=== PATIENT | male | born 1945 | race Caucasian/White ===

== ENCOUNTER 2017-11-15 12:15 | Emergency (ER) | payer MEDICARE, OTHER ==
[~2017-11-15] VITALS: Ht 172.7 cm; Wt 61.2 kg
[2017-11-15] MEDS ORDERED: CEPH500 PO (13:03)
== END 2017-11-15 14:15 | disposition home or self-care (01) ==
LOC: ER 12:15
DX: S01.511A Laceration without foreign body of lip, initial encounter (principal); G89.4 Chronic pain syndrome; W01.198A Fall on same level from slipping, tripping and stumbling with subsequent striking against other object, initial encounter
CPT/HCPCS: 90471; 90714; 99283

== ENCOUNTER 2018-03-08 16:55 | Emergency (ER) | payer MEDICARE, OTHER ==
[~2018-03-08] VITALS: Ht 170.2 cm; Wt 56.7 kg
[~2018-03-08 16:55] MED LIST: ALLO100 PO; AMLO5 PO; ASPI325 PO; B-12500 MCG PO; BACL10 PO; CEPH500 PO; DICL25ER PO; DONE5 PO; EPIPEN 2-P0.3 MG/0.3 IM; Keppra750 MG PO; LEVSOD125 PO; Liquitears15 ML UD; MAGOXI400 PO; MIRT15 PO; NYSTATIN1 EAC1 TOP; Oxycodone HCl20 M1 PO; SERT100 PO; TIZANIDINE HCL4 MG PO; VITAMIN D35000 UNI1 PO
[2018-03-08 17:55] LABS: BASOPHILS ABSOLUTE AUTO 0.04 K/mm3 (0.00-0.23); BASOPHILS PERCENT AUTO 1 % (0-2); EOSINOPHILS PERCENT AUTO 3 % (0-6); Hematocrit 32.3 % (37.0-53.0); Hemoglobin 10.2 g/dL (13.5-17.5); IMMATURE GRAN ABSOLUTE AUTO 0.02 K/mm3 (0.00-0.10); IMMATURE GRAN PERCENT AUTO 1 % (0-1); LYMPHOCYTES PERCENT AUTO 20 % (21-46); MONOCYTES ABSOLUTE AUTO 0.54 K/mm3 (0.16-1.47); MONOCYTES PERCENT AUTO 15 % (4-13); Mean Corpuscular HGB 31.9 pg (26.0-34.0); Mean Corpuscular HGB Conc 31.6 g/dL (31.5-36.5); Mean Corpuscular Volume 101 fL (80-100); Mean Platelet Volume 11.1 fL (9.1-12.4); NEUTROPHILS ABSOLUTE AUTO 2.11 K/mm3 (1.96-9.15); NEUTROPHILS PERCENT AUTO 60 % (41-73); Platelet Count 134 K/mm3 (150-400); RDW Coefficient Variation 13.3 % (11.7-14.2); RDW Standard Deviation 50.1 fL (35.1-46.3); White Blood Cell Count 3.51 K/mm3 (4.00-11.30)
[2018-03-08 18:34] LABS: Alanine Aminotransfer (ALT/SGP 13 U/L (12-78); Albumin, Blood 3.5 g/dL (3.4-5.0); Albumin/Globulin Ratio 1.3 (0.8-1.8); Alk Phos 57 U/L (50-136); Anion Gap 8 mmol/L (6-16); Aspartate Aminotrans (AST/SGOT 17 U/L (12-37); Bilirubin, Total 0.5 mg/dL (0.1-1.0); Blood Urea Nitrogen 21 mg/dL (8-24); Bun/Creatinine Ratio 14.1 (12.0-20.0); CO2, Blood 27 mmol/L (21-32); Calcium, Blood 8.6 mg/dL (8.5-10.1); Chloride, Blood 106 mmol/L (98-108); Creatinine, Blood 1.49 mg/dL (0.60-1.20); Globulin, Blood 2.7 g/dL (2.2-4.0); Glomerular Filtration Rate 49 (60-); Glucose, Blood 93 mg/dL (70-99); Potassium, Blood 4.6 mmol/L (3.5-5.5); Sodium, Blood 141 mmol/L (136-145); Total Protein, Blood 6.2 g/dL (6.4-8.2)
[2018-03-08 19:35] LABS: Troponin I <0.015 ng/mL (0.000-0.040)
[2018-03-08] MEDS ORDERED: Lomotil Tablet1 EACH PO (19:47)
== END 2018-03-08 22:45 | disposition home or self-care (01) ==
LOC: ER 16:55
PROVIDERS: Emergency Medicine
DX: R55 Syncope and collapse (principal); R19.7 Diarrhea, unspecified; Z79.899 Other long term (current) drug therapy
CPT/HCPCS: 36415; 71045; 80053; 81000; 84484; 85025; 93005; 93010; 96360; 96361; 99285-25; J7030

== ENCOUNTER 2018-04-21 16:11 | Emergency (ER) | payer MEDICARE, OTHER ==
[~2018-04-21] VITALS: Ht 167.6 cm; Wt 54.4 kg
[~2018-04-21 16:11] MED LIST changes: +Lomotil Tablet1 EACH PO
[2018-04-21 17:37] LABS: BASOPHILS ABSOLUTE AUTO 0.03 K/mm3 (0.00-0.23); BASOPHILS PERCENT AUTO 0 % (0-2); EOSINOPHILS ABSOLUTE AUTO 0.01 K/mm3 (0.00-0.68); EOSINOPHILS PERCENT AUTO 0 % (0-6); IMMATURE GRAN ABSOLUTE AUTO 0.05 K/mm3 (0.00-0.10); IMMATURE GRAN PERCENT AUTO 1 % (0-1); LYMPHOCYTES ABSOLUTE AUTO 0.94 K/mm3 (0.84-5.20); LYMPHOCYTES PERCENT AUTO 13 % (21-46); MONOCYTES ABSOLUTE AUTO 0.68 K/mm3 (0.16-1.47); MONOCYTES PERCENT AUTO 9 % (4-13); Mean Corpuscular HGB 31.2 pg (26.0-34.0); Mean Corpuscular HGB Conc 34.3 g/dL (31.5-36.5); Mean Corpuscular Volume 91 fL (80-100); Mean Platelet Volume 10.1 fL (9.1-12.4); NEUTROPHILS ABSOLUTE AUTO 5.73 K/mm3 (1.96-9.15); NEUTROPHILS PERCENT AUTO 77 % (41-73); Platelet Count 254 K/mm3 (150-400); RDW Coefficient Variation 13.4 % (11.7-14.2); RDW Standard Deviation 44.7 fL (35.1-46.3); Red Blood Cell Count 3.85 M/mm3 (4.30-5.90); White Blood Cell Count 7.44 K/mm3 (4.00-11.30)
[2018-04-21 17:44] LABS: Alanine Aminotransfer (ALT/SGP 232 U/L (12-78); Albumin, Blood 3.9 g/dL (3.4-5.0); Albumin/Globulin Ratio 1.2 (0.8-1.8); Alk Phos 200 U/L (50-136); Anion Gap 17 mmol/L (6-16); Aspartate Aminotrans (AST/SGOT 136 U/L (12-37); Bilirubin, Total 0.7 mg/dL (0.1-1.0); Blood Urea Nitrogen 17 mg/dL (8-24); Bun/Creatinine Ratio 22.4 (12.0-20.0); CO2, Blood 18 mmol/L (21-32); Calcium, Blood 8.4 mg/dL (8.5-10.1); Chloride, Blood 108 mmol/L (98-108); Creatinine, Blood 0.76 mg/dL (0.60-1.20); Globulin, Blood 3.2 g/dL (2.2-4.0); Glomerular Filtration Rate >60 (60-); Glucose, Blood 102 mg/dL (70-99); Potassium, Blood 3.1 mmol/L (3.5-5.5); Sodium, Blood 143 mmol/L (136-145); Total Protein, Blood 7.1 g/dL (6.4-8.2)
[2018-04-21 17:45] LABS: Ethanol (Alcohol), Blood, Med 536 mg/dL
[2018-04-23 09:16] LABS: HBSAG SCREEN Negative (Negative); HEP A AB, IGM Negative (Negative); HEP B CORE AB, IGM Negative (Negative); HEP C VIRUS AB 0.2 (0.0-0.9)
== END 2018-04-21 21:02 | disposition home or self-care (01) ==
LOC: ER 16:11
PROVIDERS: Emergency Medicine
DX: F10.129 Alcohol abuse with intoxication, unspecified (principal); Z87.891 Personal history of nicotine dependence
CPT/HCPCS: 80053; 80074; 83735; 85025; 93005; 93010; 99284-25; G0480; J3411; J3475; J7042

== ENCOUNTER 2018-05-05 08:14 | Observation (INO) | payer MEDICARE, OTHER ==
[~2018-05-05] VITALS: Ht 167.6 cm; Wt 51.8 kg
[2018-05-05 09:22] LABS: Source, Urine Catheter
[2018-05-05 09:31] LABS: Appearance, Urine Clear (Clear); Bilirubin, Urine Neg (Neg); Blood, Urine 3+ (Neg); Color, Urine Yellow (P-Yellow); Glucose Qualitative, Urine Neg (Neg); Ketones, Urine 1+ (Neg); Leukocyte Esterase, Urine Neg (Neg); Nitrite, Urine Neg (Neg); Protein, Urine 1+ (Neg); Specific Gravity, Urine 1.015 (1.003-1.022); Urobilinogen, Urine NORM (Normal)
[2018-05-05 09:31] LABS: BASOPHILS ABSOLUTE AUTO 0.03 K/mm3 (0.00-0.23); BASOPHILS PERCENT AUTO 0 % (0-2); EOSINOPHILS ABSOLUTE AUTO 0.01 K/mm3 (0.00-0.68); EOSINOPHILS PERCENT AUTO 0 % (0-6); Hematocrit 34.6 % (37.0-53.0); Hemoglobin 11.5 g/dL (13.5-17.5); IMMATURE GRAN ABSOLUTE AUTO 0.12 K/mm3 (0.00-0.10); IMMATURE GRAN PERCENT AUTO 1 % (0-1); LYMPHOCYTES ABSOLUTE AUTO 0.73 K/mm3 (0.84-5.20); LYMPHOCYTES PERCENT AUTO 5 % (21-46); MONOCYTES ABSOLUTE AUTO 1.52 K/mm3 (0.16-1.47); MONOCYTES PERCENT AUTO 11 % (4-13); Mean Corpuscular HGB Conc 33.2 g/dL (31.5-36.5); Mean Corpuscular Volume 93 fL (80-100); Mean Platelet Volume 10.9 fL (9.1-12.4); NEUTROPHILS ABSOLUTE AUTO 11.34 K/mm3 (1.96-9.15); NEUTROPHILS PERCENT AUTO 82 % (41-73); Platelet Count 265 K/mm3 (150-400); RDW Coefficient Variation 13.9 % (11.7-14.2); Red Blood Cell Count 3.71 M/mm3 (4.30-5.90); White Blood Cell Count 13.75 K/mm3 (4.00-11.30)
[2018-05-05 09:52] LABS: Alanine Aminotransfer (ALT/SGP 29 U/L (12-78); Albumin, Blood 3.9 g/dL (3.4-5.0); Albumin/Globulin Ratio 1.1 (0.8-1.8); Alk Phos 107 U/L (50-136); Anion Gap 9 mmol/L (6-16); Aspartate Aminotrans (AST/SGOT 43 U/L (12-37); Bilirubin, Total 1.3 mg/dL (0.1-1.0); Blood Urea Nitrogen 14 mg/dL (8-24); Bun/Creatinine Ratio 14.1 (12.0-20.0); CO2, Blood 24 mmol/L (21-32); CPK Creatine Kinase 569 U/L (39-308); Calcium, Blood 8.8 mg/dL (8.5-10.1); Chloride, Blood 104 mmol/L (98-108); Creatinine, Blood 0.99 mg/dL (0.60-1.20); Globulin, Blood 3.4 g/dL (2.2-4.0); Glomerular Filtration Rate >60 (60-); Glucose, Blood 90 mg/dL (70-99); Potassium, Blood 3.3 mmol/L (3.5-5.5); Sodium, Blood 137 mmol/L (136-145); Total Protein, Blood 7.3 g/dL (6.4-8.2)
[2018-05-05 09:58] LABS: Red Blood Cells, Urine 0-2 /hpf (0-2); White Blood Cells, Urine 0-2 /hpf (0-5)
[2018-05-05 09:59] LABS: Bacteria Not Seen /hpf
[2018-05-05 10:12] LABS: Creatine Kinase MB 12.6 ng/mL (0.0-3.6); Creatine Kinase MB Index 2.2 (0.0-4.0)
[2018-05-05] MEDS ORDERED: NYSTATIN1 EAC1 TOP (16:11)
[2018-05-05] MEDS ORDERED: BACL10 PO (16:12)
[2018-05-05] MEDS ORDERED: DONE5 PO (16:13)
[2018-05-05] MEDS ORDERED: VITAMIN B-650 MG PO (16:15)
[2018-05-06 05:45] LABS: BASOPHILS ABSOLUTE AUTO 0.06 K/mm3 (0.00-0.23); BASOPHILS PERCENT AUTO 1 % (0-2); EOSINOPHILS ABSOLUTE AUTO 0.08 K/mm3 (0.00-0.68); EOSINOPHILS PERCENT AUTO 1 % (0-6); Hemoglobin 11.6 g/dL (13.5-17.5); IMMATURE GRAN ABSOLUTE AUTO 0.05 K/mm3 (0.00-0.10); IMMATURE GRAN PERCENT AUTO 1 % (0-1); LYMPHOCYTES ABSOLUTE AUTO 0.99 K/mm3 (0.84-5.20); LYMPHOCYTES PERCENT AUTO 10 % (21-46); MONOCYTES ABSOLUTE AUTO 1.28 K/mm3 (0.16-1.47); MONOCYTES PERCENT AUTO 13 % (4-13); Mean Corpuscular HGB 31.3 pg (26.0-34.0); Mean Corpuscular HGB Conc 32.2 g/dL (31.5-36.5); Mean Platelet Volume 10.3 fL (9.1-12.4); NEUTROPHILS ABSOLUTE AUTO 7.15 K/mm3 (1.96-9.15); NEUTROPHILS PERCENT AUTO 75 % (41-73); Platelet Count 270 K/mm3 (150-400); RDW Coefficient Variation 14.1 % (11.7-14.2); RDW Standard Deviation 48.9 fL (35.1-46.3); Red Blood Cell Count 3.71 M/mm3 (4.30-5.90); White Blood Cell Count 9.61 K/mm3 (4.00-11.30)
[2018-05-06 05:50] LABS: Mean Corpuscular Volume 97 fL (80-100)
[2018-05-06 05:57] LABS: Alanine Aminotransfer (ALT/SGP 25 U/L (12-78); Albumin, Blood 2.9 g/dL (3.4-5.0); Albumin/Globulin Ratio 0.9 (0.8-1.8); Alk Phos 87 U/L (50-136); Anion Gap 10 mmol/L (6-16); Aspartate Aminotrans (AST/SGOT 36 U/L (12-37); Blood Urea Nitrogen 9 mg/dL (8-24); Bun/Creatinine Ratio 10.9 (12.0-20.0); CO2, Blood 19 mmol/L (21-32); Calcium, Blood 7.8 mg/dL (8.5-10.1); Chloride, Blood 111 mmol/L (98-108); Creatinine, Blood 0.83 mg/dL (0.60-1.20); Globulin, Blood 3.2 g/dL (2.2-4.0); Glomerular Filtration Rate >60 (60-); Glucose, Blood 105 mg/dL (70-99); Potassium, Blood 3.7 mmol/L (3.5-5.5); Sodium, Blood 140 mmol/L (136-145); Total Protein, Blood 6.1 g/dL (6.4-8.2)
[2018-05-07 05:41] LABS: BASOPHILS ABSOLUTE AUTO 0.05 K/mm3 (0.00-0.23); BASOPHILS PERCENT AUTO 1 % (0-2); EOSINOPHILS ABSOLUTE AUTO 0.07 K/mm3 (0.00-0.68); EOSINOPHILS PERCENT AUTO 1 % (0-6); Hematocrit 32.9 % (37.0-53.0); Hemoglobin 10.9 g/dL (13.5-17.5); IMMATURE GRAN ABSOLUTE AUTO 0.05 K/mm3 (0.00-0.10); IMMATURE GRAN PERCENT AUTO 1 % (0-1); LYMPHOCYTES ABSOLUTE AUTO 1.09 K/mm3 (0.84-5.20); LYMPHOCYTES PERCENT AUTO 15 % (21-46); MONOCYTES ABSOLUTE AUTO 0.96 K/mm3 (0.16-1.47); MONOCYTES PERCENT AUTO 13 % (4-13); Mean Corpuscular HGB 31.1 pg (26.0-34.0); Mean Corpuscular HGB Conc 33.1 g/dL (31.5-36.5); Mean Corpuscular Volume 94 fL (80-100); Mean Platelet Volume 10.5 fL (9.1-12.4); NEUTROPHILS ABSOLUTE AUTO 5.07 K/mm3 (1.96-9.15); NEUTROPHILS PERCENT AUTO 69 % (41-73); Platelet Count 225 K/mm3 (150-400); RDW Coefficient Variation 14.4 % (11.7-14.2); Red Blood Cell Count 3.51 M/mm3 (4.30-5.90); White Blood Cell Count 7.29 K/mm3 (4.00-11.30)
[2018-05-07 06:21] LABS: Anion Gap 10 mmol/L (6-16); Blood Urea Nitrogen 11 mg/dL (8-24); CO2, Blood 22 mmol/L (21-32); Calcium, Blood 7.7 mg/dL (8.5-10.1); Chloride, Blood 109 mmol/L (98-108); Creatinine, Blood 0.85 mg/dL (0.60-1.20); Glomerular Filtration Rate >60 (60-); Glucose, Blood 95 mg/dL (70-99); Potassium, Blood 3.7 mmol/L (3.5-5.5); Sodium, Blood 141 mmol/L (136-145)
== END 2018-05-10 11:13 | disposition home or self-care (01) ==
LOC: DELPENDDIS → ER 08:14 → MEDS 08:15 → ENPENDDIS 05-07 07:12 → MEDS 05-10 11:13
PROVIDERS: Emergency Medicine; Hospitalist
DX: R62.7 Adult failure to thrive (principal); G93.40 Encephalopathy, unspecified; G40.909 Epilepsy, unspecified, not intractable, without status epilepticus; E03.9 Hypothyroidism, unspecified; E43 Unspecified severe protein-calorie malnutrition; I10 Essential (primary) hypertension; M10.9 Gout, unspecified; Z79.82 Long term (current) use of aspirin; Z79.899 Other long term (current) drug therapy; Z88.6 Allergy status to analgesic agent; Z88.8 Allergy status to other drugs, medicaments and biological substances; W18.30XA Fall on same level, unspecified, initial encounter
CPT/HCPCS: 31720; 36415; 51701; 70450; 71046; 74150; 80048; 80053; 81001; 82550; 82553; 85025; 87070; 87077; 87186; 87205; 92610; 94760; 96360; 96361; 96374; 96375; 96376; 97161; 97165; 99285-25; G0378; G0480; G8978; G8979; G8980; G8987; G8988; G8989; G8996; G8997; G8998; J0690; J0780; J2405; J7030

== ENCOUNTER 2018-06-13 09:46 | Inpatient (IN) | payer MEDICARE, OTHER ==
[~2018-06-13] VITALS: Ht 170.2 cm; Wt 49.5 kg
[~2018-06-13 09:46] MED LIST changes: +ROXICODONE5 MG PO; +VITAMIN B-650 MG PO
[2018-06-13 10:41] LABS: BASOPHILS ABSOLUTE AUTO 0.03 K/mm3 (0.00-0.23); BASOPHILS PERCENT AUTO 1 % (0-2); EOSINOPHILS ABSOLUTE AUTO 0.18 K/mm3 (0.00-0.68); EOSINOPHILS PERCENT AUTO 3 % (0-6); Hematocrit 25.7 % (37.0-53.0); Hemoglobin 7.9 g/dL (13.5-17.5); IMMATURE GRAN ABSOLUTE AUTO 0.04 K/mm3 (0.00-0.10); IMMATURE GRAN PERCENT AUTO 1 % (0-1); LYMPHOCYTES ABSOLUTE AUTO 0.68 K/mm3 (0.84-5.20); LYMPHOCYTES PERCENT AUTO 12 % (21-46); MONOCYTES ABSOLUTE AUTO 0.77 K/mm3 (0.16-1.47); MONOCYTES PERCENT AUTO 14 % (4-13); Mean Corpuscular HGB Conc 30.7 g/dL (31.5-36.5); Mean Corpuscular Volume 101 fL (80-100); Mean Platelet Volume 10.5 fL (9.1-12.4); NEUTROPHILS ABSOLUTE AUTO 3.92 K/mm3 (1.96-9.15); NEUTROPHILS PERCENT AUTO 70 % (41-73); Platelet Count 170 K/mm3 (150-400); RDW Coefficient Variation 14.9 % (11.7-14.2); RDW Standard Deviation 54.6 fL (35.1-46.3); Red Blood Cell Count 2.55 M/mm3 (4.30-5.90); White Blood Cell Count 5.62 K/mm3 (4.00-11.30)
[2018-06-13 11:01] LABS: Albumin, Blood 3.3 g/dL (3.4-5.0); Bilirubin, Total 0.6 mg/dL (0.1-1.0); Bun/Creatinine Ratio 25.2 (12.0-20.0); Calcium, Blood 8.3 mg/dL (8.5-10.1); Creatinine, Blood 1.43 mg/dL (0.60-1.20); Globulin, Blood 3.4 g/dL (2.2-4.0); Potassium, Blood 5.6 mmol/L (3.5-5.5); Total Protein, Blood 6.7 g/dL (6.4-8.2)
[2018-06-13] MEDS ORDERED: OXYC10TA19 (11:32)
[2018-06-13] MEDS ORDERED: Oxycodone HCl20 M1 PO (11:32)
[2018-06-13] MEDS ORDERED: Diclofenac Pota50 MG PO (11:32)
[2018-06-13] MEDS ORDERED: Amlodipine Bes2.5 MG PO (11:32)
[2018-06-13] MEDS ORDERED: LEVETIRACETAM750 MG PO (11:33)
[2018-06-13] MEDS ORDERED: Zanaflex4 MG PO (11:33)
[2018-06-13] MEDS ORDERED: OXYC5 (11:33)
[2018-06-13 20:47] LABS: Anion Gap 10 mmol/L (6-16); BASOPHILS ABSOLUTE AUTO 0.04 K/mm3 (0.00-0.23); BASOPHILS PERCENT AUTO 0 % (0-2); Blood Urea Nitrogen 27 mg/dL (8-24); Bun/Creatinine Ratio 28.5 (12.0-20.0); CO2, Blood 20 mmol/L (21-32); Calcium, Blood 7.8 mg/dL (8.5-10.1); Chloride, Blood 114 mmol/L (98-108); Creatinine, Blood 0.95 mg/dL (0.60-1.20); EOSINOPHILS ABSOLUTE AUTO 0.03 K/mm3 (0.00-0.68); EOSINOPHILS PERCENT AUTO 0 % (0-6); Glomerular Filtration Rate >60 (60-); Glucose, Blood 161 mg/dL (70-99); Hematocrit 29.6 % (37.0-53.0); Hemoglobin 8.9 g/dL (13.5-17.5); IMMATURE GRAN ABSOLUTE AUTO 0.15 K/mm3 (0.00-0.10); IMMATURE GRAN PERCENT AUTO 1 % (0-1); LYMPHOCYTES ABSOLUTE AUTO 0.42 K/mm3 (0.84-5.20); LYMPHOCYTES PERCENT AUTO 3 % (21-46); MONOCYTES ABSOLUTE AUTO 1.29 K/mm3 (0.16-1.47); MONOCYTES PERCENT AUTO 8 % (4-13); Mean Corpuscular HGB 30.5 pg (26.0-34.0); Mean Corpuscular HGB Conc 30.1 g/dL (31.5-36.5); Mean Corpuscular Volume 101 fL (80-100); Mean Platelet Volume 10.4 fL (9.1-12.4); NEUTROPHILS ABSOLUTE AUTO 13.47 K/mm3 (1.96-9.15); NEUTROPHILS PERCENT AUTO 87 % (41-73); Platelet Count 233 K/mm3 (150-400); Potassium, Blood 4.3 mmol/L (3.5-5.5); RDW Coefficient Variation 14.7 % (11.7-14.2); RDW Standard Deviation 53.9 fL (35.1-46.3); Red Blood Cell Count 2.92 M/mm3 (4.30-5.90); Sodium, Blood 144 mmol/L (136-145)
[2018-06-13 20:51] LABS: CPK Creatine Kinase 35 U/L (39-308); Creatine Kinase MB 1.8 ng/mL (0.0-3.6); Creatine Kinase MB Index 5.1 (0.0-4.0); Troponin I 0.192 ng/mL (0.000-0.040)
[2018-06-13 20:58] LABS: PCO2 Arterial 41.6 mmHg (35-45); PO2 Arterial 65.9 mmHg (80-100); pH Blood Arterial 7.27 (7.35-7.45)
[2018-06-13 21:14] LABS: Albumin, Blood 2.9 g/dL (3.4-5.0); Albumin/Globulin Ratio 0.8 (0.8-1.8); Bilirubin, Direct 0.1 mg/dL (0.0-0.3); Bilirubin, Indirect 0.4 mg/dL (0.1-0.7); Bilirubin, Total 0.5 mg/dL (0.1-1.0); Globulin, Blood 3.6 g/dL (2.2-4.0); Total Protein, Blood 6.5 g/dL (6.4-8.2)
[2018-06-13 21:48] LABS: Source, Urine Clean Catch
[2018-06-13 21:51] LABS: Bilirubin, Urine Neg (Neg); Blood, Urine Neg (Neg); Glucose Qualitative, Urine 2+ (Neg); Ketones, Urine 2+ (Neg); Leukocyte Esterase, Urine Neg (Neg); Nitrite, Urine Neg (Neg); Protein, Urine 1+ (Neg); Specific Gravity, Urine 1.015 (1.003-1.022); Urobilinogen, Urine NORM (Normal)
[2018-06-13 21:54] LABS: Appearance, Urine Clear (Clear); Color, Urine Yellow (P-Yellow)
[2018-06-13 22:16] LABS: Source, Urine Catheter
[2018-06-13 22:19] LABS: Bilirubin, Urine Neg (Neg); Blood, Urine Neg (Neg); Glucose Qualitative, Urine 4+ (Neg); Ketones, Urine 2+ (Neg); Leukocyte Esterase, Urine Neg (Neg); Nitrite, Urine Neg (Neg); Protein, Urine 1+ (Neg); Specific Gravity, Urine 1.015 (1.003-1.022); Urobilinogen, Urine NORM (Normal)
[2018-06-13 22:23] LABS: Appearance, Urine Clear (Clear); Color, Urine Yellow (P-Yellow)
[2018-06-14 05:06] LABS: Hematocrit 29.8 % (37.0-53.0); Hemoglobin 9.1 g/dL (13.5-17.5); Mean Corpuscular HGB 30.2 pg (26.0-34.0); Mean Corpuscular HGB Conc 30.5 g/dL (31.5-36.5); Mean Corpuscular Volume 99 fL (80-100); Mean Platelet Volume 10.6 fL (9.1-12.4); Platelet Count 223 K/mm3 (150-400); RDW Coefficient Variation 14.6 % (11.7-14.2); RDW Standard Deviation 52.7 fL (35.1-46.3); Red Blood Cell Count 3.01 M/mm3 (4.30-5.90); White Blood Cell Count 7.88 K/mm3 (4.00-11.30)
[2018-06-14 05:16] LABS: International Normalized Ratio 1.03; Prothrombin Time Results 10.6 Sec (9.7-11.5)
[2018-06-14 05:34] LABS: Anion Gap 11 mmol/L (6-16); Blood Urea Nitrogen 22 mg/dL (8-24); Bun/Creatinine Ratio 25.5 (12.0-20.0); CO2, Blood 22 mmol/L (21-32); Calcium, Blood 8.5 mg/dL (8.5-10.1); Chloride, Blood 110 mmol/L (98-108); Creatinine, Blood 0.86 mg/dL (0.60-1.20); Glomerular Filtration Rate >60 (60-); Glucose, Blood 229 mg/dL (70-99); Sodium, Blood 143 mmol/L (136-145)
[2018-06-15 05:01] LABS: BASOPHILS PERCENT AUTO 0 % (0-2); EOSINOPHILS PERCENT AUTO 0 % (0-6); Hematocrit 26.7 % (37.0-53.0); Hemoglobin 8.3 g/dL (13.5-17.5); IMMATURE GRAN ABSOLUTE AUTO 0.11 K/mm3 (0.00-0.10); IMMATURE GRAN PERCENT AUTO 1 % (0-1); LYMPHOCYTES ABSOLUTE AUTO 0.22 K/mm3 (0.84-5.20); LYMPHOCYTES PERCENT AUTO 2 % (21-46); MONOCYTES ABSOLUTE AUTO 0.46 K/mm3 (0.16-1.47); MONOCYTES PERCENT AUTO 4 % (4-13); Mean Corpuscular HGB 30.3 pg (26.0-34.0); Mean Corpuscular HGB Conc 31.1 g/dL (31.5-36.5); Mean Corpuscular Volume 97 fL (80-100); Mean Platelet Volume 10.8 fL (9.1-12.4); NEUTROPHILS ABSOLUTE AUTO 11.06 K/mm3 (1.96-9.15); NEUTROPHILS PERCENT AUTO 93 % (41-73); Platelet Count 208 K/mm3 (150-400); RDW Coefficient Variation 14.6 % (11.7-14.2); RDW Standard Deviation 51.2 fL (35.1-46.3); Red Blood Cell Count 2.74 M/mm3 (4.30-5.90); White Blood Cell Count 11.85 K/mm3 (4.00-11.30)
[2018-06-15 05:11] LABS: PCO2 Arterial 33.7 mmHg (35-45); PO2 Arterial 69.5 mmHg (80-100); pH Blood Arterial 7.46 (7.35-7.45)
[2018-06-15 05:36] LABS: Anion Gap 9 mmol/L (6-16); Blood Urea Nitrogen 21 mg/dL (8-24); Bun/Creatinine Ratio 26.8 (12.0-20.0); CO2, Blood 22 mmol/L (21-32); Chloride, Blood 113 mmol/L (98-108); Creatinine, Blood 0.78 mg/dL (0.60-1.20); Glomerular Filtration Rate >60 (60-); Glucose, Blood 131 mg/dL (70-99); Potassium, Blood 3.7 mmol/L (3.5-5.5); Sodium, Blood 144 mmol/L (136-145); Troponin I 0.161 ng/mL (0.000-0.040)
[2018-06-16 04:47] LABS: BASOPHILS ABSOLUTE AUTO 0.01 K/mm3 (0.00-0.23); BASOPHILS PERCENT AUTO 0 % (0-2); EOSINOPHILS PERCENT AUTO 0 % (0-6); Hemoglobin 9.5 g/dL (13.5-17.5); IMMATURE GRAN PERCENT AUTO 2 % (0-1); LYMPHOCYTES ABSOLUTE AUTO 0.27 K/mm3 (0.84-5.20); LYMPHOCYTES PERCENT AUTO 2 % (21-46); MONOCYTES ABSOLUTE AUTO 0.61 K/mm3 (0.16-1.47); MONOCYTES PERCENT AUTO 5 % (4-13); Mean Corpuscular HGB 31.1 pg (26.0-34.0); Mean Corpuscular HGB Conc 32.8 g/dL (31.5-36.5); Mean Corpuscular Volume 95 fL (80-100); Mean Platelet Volume 10.5 fL (9.1-12.4); NEUTROPHILS ABSOLUTE AUTO 11.16 K/mm3 (1.96-9.15); NEUTROPHILS PERCENT AUTO 90 % (41-73); Platelet Count 273 K/mm3 (150-400); RDW Coefficient Variation 14.7 % (11.7-14.2); RDW Standard Deviation 50.9 fL (35.1-46.3); Red Blood Cell Count 3.05 M/mm3 (4.30-5.90); White Blood Cell Count 12.35 K/mm3 (4.00-11.30)
[2018-06-16 05:10] LABS: Alanine Aminotransfer (ALT/SGP 28 U/L (12-78); Albumin, Blood 2.7 g/dL (3.4-5.0); Albumin/Globulin Ratio 0.8 (0.8-1.8); Alk Phos 154 U/L (50-136); Anion Gap 10 mmol/L (6-16); Aspartate Aminotrans (AST/SGOT 14 U/L (12-37); Bilirubin, Total 0.5 mg/dL (0.1-1.0); Blood Urea Nitrogen 31 mg/dL (8-24); Bun/Creatinine Ratio 32.1 (12.0-20.0); CO2, Blood 28 mmol/L (21-32); Calcium, Blood 8.1 mg/dL (8.5-10.1); Chloride, Blood 108 mmol/L (98-108); Creatinine, Blood 0.97 mg/dL (0.60-1.20); Globulin, Blood 3.4 g/dL (2.2-4.0); Glomerular Filtration Rate >60 (60-); Glucose, Blood 135 mg/dL (70-99); Potassium, Blood 2.7 mmol/L (3.5-5.5); Sodium, Blood 146 mmol/L (136-145); Total Protein, Blood 6.1 g/dL (6.4-8.2)
[2018-06-17 06:04] LABS: Hematocrit 31.9 % (37.0-53.0); Hemoglobin 10.2 g/dL (13.5-17.5); Mean Corpuscular HGB 31.2 pg (26.0-34.0); Mean Corpuscular Volume 98 fL (80-100); Mean Platelet Volume 9.9 fL (9.1-12.4); Platelet Count 263 K/mm3 (150-400); RDW Coefficient Variation 14.3 % (11.7-14.2); RDW Standard Deviation 50.6 fL (35.1-46.3); Red Blood Cell Count 3.27 M/mm3 (4.30-5.90); White Blood Cell Count 14.59 K/mm3 (4.00-11.30)
[2018-06-17 06:25] LABS: Anion Gap 9 mmol/L (6-16); Blood Urea Nitrogen 32 mg/dL (8-24); Bun/Creatinine Ratio 33.3 (12.0-20.0); CO2, Blood 30 mmol/L (21-32); Calcium, Blood 8.3 mg/dL (8.5-10.1); Chloride, Blood 102 mmol/L (98-108); Creatinine, Blood 0.96 mg/dL (0.60-1.20); Glomerular Filtration Rate >60 (60-); Glucose, Blood 117 mg/dL (70-99); Potassium, Blood 3.2 mmol/L (3.5-5.5); Sodium, Blood 141 mmol/L (136-145)
[2018-06-18 03:48] LABS: Hemoglobin 9.9 g/dL (13.5-17.5); Mean Corpuscular HGB 30.8 pg (26.0-34.0); Mean Corpuscular HGB Conc 31.9 g/dL (31.5-36.5); Mean Corpuscular Volume 97 fL (80-100); Mean Platelet Volume 9.5 fL (9.1-12.4); Platelet Count 277 K/mm3 (150-400); RDW Coefficient Variation 14.2 % (11.7-14.2); RDW Standard Deviation 50.1 fL (35.1-46.3); Red Blood Cell Count 3.21 M/mm3 (4.30-5.90); White Blood Cell Count 10.59 K/mm3 (4.00-11.30)
[2018-06-18 04:05] LABS: Alanine Aminotransfer (ALT/SGP 154 U/L (12-78); Albumin, Blood 2.9 g/dL (3.4-5.0); Albumin/Globulin Ratio 0.9 (0.8-1.8); Alk Phos 153 U/L (50-136); Anion Gap 9 mmol/L (6-16); Aspartate Aminotrans (AST/SGOT 112 U/L (12-37); Bilirubin, Total 0.5 mg/dL (0.1-1.0); Blood Urea Nitrogen 30 mg/dL (8-24); Bun/Creatinine Ratio 24.4 (12.0-20.0); CO2, Blood 33 mmol/L (21-32); Chloride, Blood 100 mmol/L (98-108); Creatinine, Blood 1.23 mg/dL (0.60-1.20); Globulin, Blood 3.2 g/dL (2.2-4.0); Glomerular Filtration Rate >60 (60-); Glucose, Blood 83 mg/dL (70-99); Magnesium, Blood 1.8 mg/dL (1.6-2.4); Potassium, Blood 3.9 mmol/L (3.5-5.5); Sodium, Blood 142 mmol/L (136-145); Total Protein, Blood 6.1 g/dL (6.4-8.2)
[2018-06-18 04:07] LABS: BAND PERCENT MAN 2 % (0-8); BASOPHILS PERCENT MAN 0 % (0-2); EOSINOPHILS PERCENT MAN 1 % (0-6); LYMPHOCYTES ABSOLUTE MAN 2.01 K/mm3 (0.84-5.20); LYMPHOCYTES PERCENT MAN 19 % (21-46); MONOCYTES ABSOLUTE MAN 0.74 K/mm3 (0.16-1.47); MONOCYTES PERCENT MAN 7 % (4-13); MYELOCYTE ABSOLUTE MAN 0.21 K/mm3 (0.00-0.00); MYELOCYTE PERCENT MAN 2 % (0-0); NEUTROPHILS ABSOLUTE MAN 7.51 K/mm3 (1.96-9.15); SEG NEUTROPHILS PERCENT MAN 69 % (41-73); TOTAL CELLS COUNTED 100
[2018-06-19 06:20] LABS: Hematocrit 33.9 % (37.0-53.0); Hemoglobin 10.6 g/dL (13.5-17.5); Mean Corpuscular HGB 30.9 pg (26.0-34.0); Mean Corpuscular HGB Conc 31.3 g/dL (31.5-36.5); Mean Corpuscular Volume 99 fL (80-100); Mean Platelet Volume 10.1 fL (9.1-12.4); Platelet Count 277 K/mm3 (150-400); RDW Coefficient Variation 14.2 % (11.7-14.2); RDW Standard Deviation 51.8 fL (35.1-46.3); Red Blood Cell Count 3.43 M/mm3 (4.30-5.90); White Blood Cell Count 12.38 K/mm3 (4.00-11.30)
[2018-06-19 06:44] LABS: Alanine Aminotransfer (ALT/SGP 235 U/L (12-78); Albumin, Blood 3.1 g/dL (3.4-5.0); Alk Phos 168 U/L (50-136); Anion Gap 6 mmol/L (6-16); Aspartate Aminotrans (AST/SGOT 120 U/L (12-37); Bilirubin, Total 0.5 mg/dL (0.1-1.0); Blood Urea Nitrogen 28 mg/dL (8-24); Bun/Creatinine Ratio 24.3 (12.0-20.0); CO2, Blood 30 mmol/L (21-32); Calcium, Blood 8.6 mg/dL (8.5-10.1); Chloride, Blood 105 mmol/L (98-108); Creatinine, Blood 1.15 mg/dL (0.60-1.20); Glomerular Filtration Rate >60 (60-); Glucose, Blood 96 mg/dL (70-99); Sodium, Blood 141 mmol/L (136-145); Total Protein, Blood 6.1 g/dL (6.4-8.2)
[2018-06-19 06:48] LABS: BAND PERCENT MAN 2 % (0-8); BASOPHILS PERCENT MAN 0 % (0-2); EOSINOPHILS ABSOLUTE MAN 0.24 K/mm3 (0.00-0.68); EOSINOPHILS PERCENT MAN 2 % (0-6); LYMPHOCYTES PERCENT MAN 13 % (21-46); MONOCYTES ABSOLUTE MAN 1.11 K/mm3 (0.16-1.47); MONOCYTES PERCENT MAN 9 % (4-13); SEG NEUTROPHILS PERCENT MAN 74 % (41-73); TOTAL CELLS COUNTED 100
[2018-06-20 10:38] LABS: Hematocrit 35.6 % (37.0-53.0); Hemoglobin 10.8 g/dL (13.5-17.5); Mean Corpuscular HGB 30.4 pg (26.0-34.0); Mean Corpuscular HGB Conc 30.3 g/dL (31.5-36.5); Mean Corpuscular Volume 100 fL (80-100); Mean Platelet Volume 10.3 fL (9.1-12.4); Platelet Count 313 K/mm3 (150-400); RDW Standard Deviation 51.7 fL (35.1-46.3); Red Blood Cell Count 3.55 M/mm3 (4.30-5.90); White Blood Cell Count 15.68 K/mm3 (4.00-11.30)
[2018-06-20 11:00] LABS: BAND PERCENT MAN 5 % (0-8); BASOPHILS PERCENT MAN 0 % (0-2); EOSINOPHILS ABSOLUTE MAN 0.62 K/mm3 (0.00-0.68); EOSINOPHILS PERCENT MAN 4 % (0-6); LYMPHOCYTES ABSOLUTE MAN 2.03 K/mm3 (0.84-5.20); LYMPHOCYTES PERCENT MAN 13 % (21-46); METAMYELOCYTE ABSOLUTE MAN 0.31 K/mm3 (0.00-0.00); METAMYELOCYTE PERCENT MAN 2 % (0-0); MONOCYTES ABSOLUTE MAN 0.31 K/mm3 (0.16-1.47); MONOCYTES PERCENT MAN 2 % (4-13); MYELOCYTE ABSOLUTE MAN 0.15 K/mm3 (0.00-0.00); MYELOCYTE PERCENT MAN 1 % (0-0); NEUTROPHILS ABSOLUTE MAN 12.23 K/mm3 (1.96-9.15); SEG NEUTROPHILS PERCENT MAN 73 % (41-73); TOTAL CELLS COUNTED 100
[2018-06-20 11:03] LABS: Alanine Aminotransfer (ALT/SGP 197 U/L (12-78); Albumin, Blood 3.1 g/dL (3.4-5.0); Albumin/Globulin Ratio 0.9 (0.8-1.8); Alk Phos 167 U/L (50-136); Anion Gap 8 mmol/L (6-16); Aspartate Aminotrans (AST/SGOT 78 U/L (12-37); Bilirubin, Total 0.5 mg/dL (0.1-1.0); Blood Urea Nitrogen 31 mg/dL (8-24); Bun/Creatinine Ratio 30.7 (12.0-20.0); CO2, Blood 24 mmol/L (21-32); Calcium, Blood 8.7 mg/dL (8.5-10.1); Chloride, Blood 106 mmol/L (98-108); Creatinine, Blood 1.01 mg/dL (0.60-1.20); Globulin, Blood 3.5 g/dL (2.2-4.0); Glomerular Filtration Rate >60 (60-); Glucose, Blood 91 mg/dL (70-99); Potassium, Blood 4.3 mmol/L (3.5-5.5); Sodium, Blood 138 mmol/L (136-145); Total Protein, Blood 6.6 g/dL (6.4-8.2)
[2018-06-21 05:59] LABS: Hematocrit 30.9 % (37.0-53.0); Mean Corpuscular HGB 30.4 pg (26.0-34.0); Mean Corpuscular HGB Conc 32.4 g/dL (31.5-36.5); Mean Platelet Volume 10.3 fL (9.1-12.4); Platelet Count 311 K/mm3 (150-400); RDW Standard Deviation 47.9 fL (35.1-46.3); Red Blood Cell Count 3.29 M/mm3 (4.30-5.90); White Blood Cell Count 15.13 K/mm3 (4.00-11.30)
[2018-06-21 06:09] LABS: Mean Corpuscular Volume 94 fL (80-100)
[2018-06-21 06:27] LABS: BAND PERCENT MAN 1 % (0-8); BASOPHILS PERCENT MAN 0 % (0-2); EOSINOPHILS ABSOLUTE MAN 0.45 K/mm3 (0.00-0.68); EOSINOPHILS PERCENT MAN 3 % (0-6); LYMPHOCYTES ABSOLUTE MAN 2.26 K/mm3 (0.84-5.20); LYMPHOCYTES PERCENT MAN 15 % (21-46); METAMYELOCYTE PERCENT MAN 2 % (0-0); MONOCYTES ABSOLUTE MAN 0.45 K/mm3 (0.16-1.47); MONOCYTES PERCENT MAN 3 % (4-13); NEUTROPHILS ABSOLUTE MAN 11.65 K/mm3 (1.96-9.15); SEG NEUTROPHILS PERCENT MAN 76 % (41-73); TOTAL CELLS COUNTED 100
[2018-06-21 06:32] LABS: Alanine Aminotransfer (ALT/SGP 177 U/L (12-78); Albumin, Blood 3.1 g/dL (3.4-5.0); Alk Phos 159 U/L (50-136); Anion Gap 7 mmol/L (6-16); Aspartate Aminotrans (AST/SGOT 63 U/L (12-37); Bilirubin, Total 0.7 mg/dL (0.1-1.0); Blood Urea Nitrogen 27 mg/dL (8-24); Bun/Creatinine Ratio 28.6 (12.0-20.0); CO2, Blood 26 mmol/L (21-32); Calcium, Blood 8.6 mg/dL (8.5-10.1); Chloride, Blood 106 mmol/L (98-108); Creatinine, Blood 0.95 mg/dL (0.60-1.20); Globulin, Blood 3.1 g/dL (2.2-4.0); Glomerular Filtration Rate >60 (60-); Glucose, Blood 85 mg/dL (70-99); Potassium, Blood 4.2 mmol/L (3.5-5.5); Sodium, Blood 139 mmol/L (136-145); Total Protein, Blood 6.2 g/dL (6.4-8.2)
[2018-06-21] MEDS ORDERED: ALBU3IS INH (09:51)
[2018-06-21] MEDS ORDERED: PANT40 PO (09:52)
== END 2018-06-21 17:14 | disposition home health service (06) | DRG 871 ==
LOC: ER 09:46 → PCU 12:20 → ICUE 12:20 → MEDS 12:20 → ICUE 14:10 → MEDS 14:12 → ICUE 19:45 → PCU 06-15 19:04 → MEDS 06-18 13:03
PROVIDERS: Emergency Medicine; Internal Medicine; Internal Medicine Critical Care Medicine; Nurse Practitioner Acute Care; Student in an Organized Health Care Education/Training Program
PROC: 0DB68ZX Excision of Stomach, Via Natural or Artificial Opening Endoscopic, Diagnostic (ICD-10-PCS; principal; 2018-06-17 14:30)
DX: A41.9 Sepsis, unspecified organism (principal); E43 Unspecified severe protein-calorie malnutrition; J96.01 Acute respiratory failure with hypoxia; J18.9 Pneumonia, unspecified organism; I50.31 Acute diastolic (congestive) heart failure; K81.0 Acute cholecystitis; N17.9 Acute kidney failure, unspecified; Z68.1 Body mass index [BMI] 19.9 or less, adult; J44.1 Chronic obstructive pulmonary disease with (acute) exacerbation; J44.0 Chronic obstructive pulmonary disease with (acute) lower respiratory infection; K94.23 Gastrostomy malfunction; E03.9 Hypothyroidism, unspecified; G40.909 Epilepsy, unspecified, not intractable, without status epilepticus; Z87.891 Personal history of nicotine dependence; I95.9 Hypotension, unspecified; E87.5 Hyperkalemia; Z90.02 Acquired absence of larynx; M10.9 Gout, unspecified; E87.70 Fluid overload, unspecified; R65.20 Severe sepsis without septic shock; R19.7 Diarrhea, unspecified; D64.9 Anemia, unspecified
CPT/HCPCS: 31720; 36415; 36600; 51702; 71045; 71046; 74176; 78226; 80048; 80053; 80076; 82272; 82550; 82553; 82803; 82947; 83605; 83690; 83735; 83880; 84484; 85025; 85027; 85610; 86850; 86900; 86901; 87040; 87070; 87205; 87449; 87493; 88305; 88312; 88341; 88342; 93005; 93010; 93306; 94640; 94644; 94760; 96365; 96367; 96375; 97110; 97116; 97162; 97165; 97535; 99285-25; A9537; C1751; C9113; G8978; G8979; G8980; G8987; G8988; J0456; J0610; J0696; J1940; J2270; J2405; J2543; J2930; J3010; J3475; J3480; J7030; J7050; J7120

== ENCOUNTER → 2018-08-05 | Outpatient (CLI) | payer MEDICARE, OTHER ==
[~2018-08-05] MED LIST changes: +ALBU3IS INH; +Amlodipine Bes2.5 MG PO; +DOCU100 PO; +Diclofenac Pota50 MG PO; +GABA100 PO; +HYDR10 PO; -Keppra750 MG PO; +LEVE500 PO; +LEVETIRACETAM750 MG PO; +LOSA50 PO; +MUPI1NAS TOP; +ONDA4ODT MM; +OXYC10TA19; +OXYC5; +PANT40 PO; +PRED20 PO; +Zanaflex4 MG PO
[2018-08-05 13:55] LABS: BASOPHILS ABSOLUTE AUTO 0.02 K/mm3 (0.00-0.23); BASOPHILS PERCENT AUTO 0 % (0-2); EOSINOPHILS ABSOLUTE AUTO 0.06 K/mm3 (0.00-0.68); EOSINOPHILS PERCENT AUTO 1 % (0-6); Hematocrit 28.8 % (37.0-53.0); Hemoglobin 9.5 g/dL (13.5-17.5); IMMATURE GRAN ABSOLUTE AUTO 0.21 K/mm3 (0.00-0.10); IMMATURE GRAN PERCENT AUTO 3 % (0-1); LYMPHOCYTES PERCENT AUTO 18 % (21-46); MONOCYTES ABSOLUTE AUTO 0.59 K/mm3 (0.16-1.47); MONOCYTES PERCENT AUTO 9 % (4-13); Mean Corpuscular HGB 30.1 pg (26.0-34.0); Mean Corpuscular Volume 91 fL (80-100); Mean Platelet Volume 10.6 fL (9.1-12.4); NEUTROPHILS ABSOLUTE AUTO 4.77 K/mm3 (1.96-9.15); NEUTROPHILS PERCENT AUTO 70 % (41-73); Platelet Count 262 K/mm3 (150-400); RDW Coefficient Variation 15.9 % (11.7-14.2); RDW Standard Deviation 50.7 fL (35.1-46.3); Red Blood Cell Count 3.16 M/mm3 (4.30-5.90); White Blood Cell Count 6.85 K/mm3 (4.00-11.30)
[2018-08-05 14:28] LABS: Albumin, Blood 3.7 g/dL (3.4-5.0); Albumin/Globulin Ratio 1.2 (0.8-1.8); Bilirubin, Total 0.4 mg/dL (0.1-1.0); Bun/Creatinine Ratio 14.3 (12.0-20.0); Calcium, Blood 8.6 mg/dL (8.5-10.1); Creatinine, Blood 1.26 mg/dL (0.60-1.20); Potassium, Blood 3.9 mmol/L (3.5-5.5); Total Protein, Blood 6.7 g/dL (6.4-8.2)
== END | disposition home or self-care (01) ==
LOC: LAB SHORT 13:39 → LAB 13:39
PROVIDERS: Registered Nurse
DX: E46 Unspecified protein-calorie malnutrition (principal); D64.9 Anemia, unspecified; I10 Essential (primary) hypertension
CPT/HCPCS: 80053; 85025

== ENCOUNTER 2018-08-12 03:39 | Emergency (ER) | payer MEDICARE, OTHER ==
[~2018-08-12] VITALS: Ht 170.2 cm; Wt 46.7 kg
[2018-08-12 04:06] LABS: BASOPHILS ABSOLUTE AUTO 0.04 K/mm3 (0.00-0.23); BASOPHILS PERCENT AUTO 1 % (0-2); EOSINOPHILS ABSOLUTE AUTO 0.11 K/mm3 (0.00-0.68); EOSINOPHILS PERCENT AUTO 3 % (0-6); Hematocrit 30.7 % (37.0-53.0); Hemoglobin 10.2 g/dL (13.5-17.5); IMMATURE GRAN ABSOLUTE AUTO 0.04 K/mm3 (0.00-0.10); IMMATURE GRAN PERCENT AUTO 1 % (0-1); LYMPHOCYTES ABSOLUTE AUTO 0.76 K/mm3 (0.84-5.20); LYMPHOCYTES PERCENT AUTO 18 % (21-46); MONOCYTES ABSOLUTE AUTO 0.61 K/mm3 (0.16-1.47); MONOCYTES PERCENT AUTO 14 % (4-13); Mean Corpuscular HGB 30.4 pg (26.0-34.0); Mean Corpuscular HGB Conc 33.2 g/dL (31.5-36.5); Mean Corpuscular Volume 92 fL (80-100); Mean Platelet Volume 9.4 fL (9.1-12.4); NEUTROPHILS ABSOLUTE AUTO 2.72 K/mm3 (1.96-9.15); NEUTROPHILS PERCENT AUTO 64 % (41-73); Platelet Count 208 K/mm3 (150-400); RDW Coefficient Variation 16.9 % (11.7-14.2); RDW Standard Deviation 55.9 fL (35.1-46.3); Red Blood Cell Count 3.35 M/mm3 (4.30-5.90); White Blood Cell Count 4.28 K/mm3 (4.00-11.30)
[2018-08-12 04:30] LABS: Alanine Aminotransfer (ALT/SGP 19 U/L (12-78); Albumin, Blood 3.7 g/dL (3.4-5.0); Albumin/Globulin Ratio 1.3 (0.8-1.8); Alk Phos 122 U/L (50-136); Anion Gap 10 mmol/L (6-16); Aspartate Aminotrans (AST/SGOT 21 U/L (12-37); Blood Urea Nitrogen 7 mg/dL (8-24); Bun/Creatinine Ratio 9.4 (12.0-20.0); CO2, Blood 22 mmol/L (21-32); Calcium, Blood 8.4 mg/dL (8.5-10.1); Chloride, Blood 107 mmol/L (98-108); Creatinine, Blood 0.75 mg/dL (0.60-1.20); Globulin, Blood 2.8 g/dL (2.2-4.0); Glomerular Filtration Rate >60 (60-); Glucose, Blood 84 mg/dL (70-99); Sodium, Blood 139 mmol/L (136-145); Total Protein, Blood 6.5 g/dL (6.4-8.2); Troponin I <0.015 ng/mL (0.000-0.040)
[2018-09-29] MEDS ORDERED: LEVSOD125 PO (08:32)
[2018-09-29] MEDS ORDERED: ALLO100 PO (08:32)
[2018-09-29] MEDS ORDERED: AMLO5 PO (08:32)
[2018-09-29] MEDS ORDERED: SERT100 PO (08:33)
[2018-09-29] MEDS ORDERED: VITAMIN D35000 UNIT PO (08:33)
[2018-09-29] MEDS ORDERED: CYAN500 PO (08:33)
[2018-09-29] MEDS ORDERED: DONE5 PO (08:34)
[2018-09-29] MEDS ORDERED: Oxycodone HCl20 M1 PO (08:34)
[2018-09-29] MEDS ORDERED: BACL10 PO (08:34)
[2018-09-29] MEDS ORDERED: Keppra1000 MG PO (08:34)
[2018-09-29] MEDS ORDERED: Pedi-Dri 100,0060 GM TOP (08:34)
[2018-09-29] MEDS ORDERED: EPIPEN 2-P0.3 MG/0.3 IM (08:35)
[2018-09-29] MEDS ORDERED: MAGOXI400 PO (08:35)
[2018-09-29] MEDS ORDERED: Mirtazapine7.5 MG PO (08:35)
[2018-09-29] MEDS ORDERED: TIZANIDINE HCL4 MG PO (08:35)
[2018-09-29] MEDS ORDERED: PANT40 PO (08:36)
[2018-09-29] MEDS ORDERED: ONDA4 PO (08:36)
[2018-09-29] MEDS ORDERED: LOSA50 PO (08:36)
[2018-09-29] MEDS ORDERED: Vitamin B-650 MG PO (08:36)
[2018-09-29] MEDS ORDERED: GABA100 PO (08:36)
[2018-09-29] MEDS ORDERED: Diclofenac Pota50 MG PO (08:37)
[2018-09-29] MEDS ORDERED: DOCU100 PO (08:37)
== END 2018-08-12 06:25 | disposition home or self-care (01) ==
LOC: ER 03:39
PROVIDERS: Emergency Medicine
DX: R07.89 Other chest pain (principal); R19.7 Diarrhea, unspecified; R11.0 Nausea; Z76.0 Encounter for issue of repeat prescription; Z91.030 Bee allergy status; Z88.8 Allergy status to other drugs, medicaments and biological substances; Z91.018 Allergy to other foods; Z79.899 Other long term (current) drug therapy; Z79.52 Long term (current) use of systemic steroids; Z87.891 Personal history of nicotine dependence
CPT/HCPCS: 36415; 71046; 74018; 80053; 83690; 84484; 85025; 93005; 93010; 96361; 96374; 99285-25; J1170; J7030

== ENCOUNTER 2018-08-16 11:33 | Inpatient (IN) | payer MEDICARE, OTHER ==
[~2018-08-16] VITALS: Ht 170.2 cm; Wt 44.0 kg
[2018-08-16 12:19] LABS: BASOPHILS ABSOLUTE AUTO 0.03 K/mm3 (0.00-0.23); BASOPHILS PERCENT AUTO 0 % (0-2); EOSINOPHILS ABSOLUTE AUTO 0.04 K/mm3 (0.00-0.68); EOSINOPHILS PERCENT AUTO 1 % (0-6); Hematocrit 33.5 % (37.0-53.0); Hemoglobin 10.4 g/dL (13.5-17.5); IMMATURE GRAN ABSOLUTE AUTO 0.16 K/mm3 (0.00-0.10); IMMATURE GRAN PERCENT AUTO 2 % (0-1); LYMPHOCYTES ABSOLUTE AUTO 0.24 K/mm3 (0.84-5.20); LYMPHOCYTES PERCENT AUTO 3 % (21-46); MONOCYTES PERCENT AUTO 9 % (4-13); Mean Corpuscular HGB 30.6 pg (26.0-34.0); Mean Platelet Volume 9.9 fL (9.1-12.4); NEUTROPHILS ABSOLUTE AUTO 7.37 K/mm3 (1.96-9.15); NEUTROPHILS PERCENT AUTO 85 % (41-73); Platelet Count 177 K/mm3 (150-400); RDW Coefficient Variation 17.5 % (11.7-14.2); RDW Standard Deviation 63.9 fL (35.1-46.3); White Blood Cell Count 8.64 K/mm3 (4.00-11.30)
[2018-08-16 12:25] LABS: Mean Corpuscular Volume 99 fL (80-100)
[2018-08-16 13:06] LABS: Alanine Aminotransfer (ALT/SGP 17 U/L (12-78); Albumin, Blood 3.7 g/dL (3.4-5.0); Albumin/Globulin Ratio 1.4 (0.8-1.8); Alk Phos 91 U/L (50-136); Anion Gap 7 mmol/L (6-16); Aspartate Aminotrans (AST/SGOT 14 U/L (12-37); Bilirubin, Total 0.6 mg/dL (0.1-1.0); Blood Urea Nitrogen 33 mg/dL (8-24); Bun/Creatinine Ratio 10.5 (12.0-20.0); CO2, Blood 22 mmol/L (21-32); Calcium, Blood 8.3 mg/dL (8.5-10.1); Chloride, Blood 110 mmol/L (98-108); Creatinine, Blood 3.15 mg/dL (0.60-1.20); Globulin, Blood 2.7 g/dL (2.2-4.0); Glomerular Filtration Rate 21 (60-); Glucose, Blood 121 mg/dL (70-99); Potassium, Blood 3.6 mmol/L (3.5-5.5); Salicylate <1.7 mg/dL (2.8-20.0); Sodium, Blood 139 mmol/L (136-145); Total Protein, Blood 6.4 g/dL (6.4-8.2)
[2018-08-16 13:11] LABS: Acetaminophen, Random <2.0 ug/mL (10.0-30.0)
--- NOTE | 2018-08-16 15:42 | NUR ---
PER Brittany RN PATIENT DOES NOT KNOW MEDS AND EMS DID NOT BRING IN [facility]. CALLED [facility] FOR LIST AND THEY ST WILL FAX
--- NOTE | 2018-08-16 17:28 | NUR ---
PATIENT ARRIVES TO FLOOR ABOUT 1600. HAS IV LT F.A. AND LT HAND. ABOUT 50 ML INFUSED FROM E.R. OF 1000 ML BOLUS. PER CONTINUE BOLUS. IV PUT ON PUMP TO 20 GA SITE LT F.A. AT 500 ML/HR WITH INFILTRATION IN ABOUT 20 MINUTES. IV D'C. PER OK TO SWITCH RATE TO 100 ML/HR. PATIENT HAS TRACH, BUT DOES NOT HAVE HIS "PORTABLE VOICE BOX" WITH HIM. PEG TUBE RT LOWER ABD. TINY SCABS ALL EXTREMITIES. TELE ON AND PER [facility] SR IN 60'S.WRITES FALL LAST NITE & C/O RT HIP PAIN WHEN HE STANDS. NO SHORTENING OF RT FOOT OR DEVIATION OUTWARD. WIGGLES ALL TOES. LEFT MESSAGE FOR DR. FAUSTIN TO SEE IF WANTS XRAY. LEFT MESSAGE FOR THAT PATIENT STS NO URINE OUTPUT TODAY, BUT DID HAVE SMALL AMOUNT LAST NIGHT. WRITES HAS NOT HAD MUCH TO DRINK. BED IN LOW POSITION. CALL LIGHT WITHIN REACH. AWARE NEED URINE SAMPLE AND WILL CALL US WHEN HE FEELD HE CAN PRODUCE. WILL CONTINUE TO MONITOR.
[2018-08-16 21:11] LABS: Source, Urine Clean Catch
[2018-08-16 21:14] LABS: Appearance, Urine Clear (Clear); Blood, Urine Neg (Neg); Color, Urine Amber (P-Yellow); Glucose Qualitative, Urine 2+ (Neg); Ketones, Urine 1+ (Neg); Leukocyte Esterase, Urine Neg (Neg); Nitrite, Urine Neg (Neg); Protein, Urine 2+ (Neg); Urobilinogen, Urine NORM (Normal)
[2018-08-16 21:17] LABS: Bilirubin, Urine 1+ (Neg)
[2018-08-16 21:20] LABS: Red Blood Cells, Urine 0-2 /hpf (0-2)
[2018-08-16 21:21] LABS: Amorphous Mod (0-Heavy); Bacteria Mod /hpf; Squamous Epithelial Cells Rare /hpf (Few)
[2018-08-16 21:22] LABS: Hyaline Casts 50-100 /lpf (0-2)
--- NOTE | 2018-08-16 23:45 | NUR ---
2038 PT LYING IN BED, REPORTS PAIN IN R HIP AND NAUSEA. GAVE OXYCODONE AND ZOFRAN, WILL EVAL FOR EFFECT. PT TO ABD, SLIGHT REDNESS AT SITE, DRESSING AROUND SITE HAS SCANT LIGHT KERR DRAINAGE. PT HAS OLD TRACHEA SITE, SITE LOOKS GOOD. PT LEFT VOICE BOX AT HOME AND IS COMMUNICATING WITH PEN AND PAPER WHEN WE CAN'T READ HIS LIPS. NO OTHER APPARENT SIGNS OF DISTRESS. CALL LIGHT IS IN REACH. BED ALARM IS ON.
--- NOTE | 2018-08-17 01:10 | NUR ---
0031 PT REQUESTED AND RECIEVED PAIN MEDS, WILL EVAL FOR EFFECT. NO OTHER APPARENT SIGNS OF DISTRESS. CALL LIGHT IS IN REACH.
--- NOTE | 2018-08-17 02:00 | NUR ---
PT LYING IN BED, AWAKE, WATCHING TV. NO APPARENT SIGNS OF DISTRESS. CALL LIGHT IS IN REACH.
--- NOTE | 2018-08-17 03:36 | NUR ---
PT LYING IN BED, AWAKE, WATCHING TV. NO APPARENT SIGNS OF DISTRESS. CALL LIGHT IS IN REACH.
--- NOTE | 2018-08-17 03:47 | NUR ---
PT IS AAO X 4, ON RA. PT HAS A TRACHEA SITE, SITE LOOKS GOOD. PATIENT FORGOT HIS VOICE BOX AT HOME, IS USING PEN AND PAPER TO COMMUNICATE. REPORTS R HIP PAIN, GOT ROXICODONE X 2. PATIENT HAS A PEG TUBE, NOT USING FOR TF, IS USING FOR MEDS, PT IS NOT NPO. TELE NSR.
--- NOTE | 2018-08-17 04:05 | NUR ---
FOR NURSING SUMMARY, SEE LAST NURSES NOTE.
[2018-08-17 05:05] LABS: BASOPHILS ABSOLUTE AUTO 0.03 K/mm3 (0.00-0.23); BASOPHILS PERCENT AUTO 1 % (0-2); EOSINOPHILS ABSOLUTE AUTO 0.11 K/mm3 (0.00-0.68); EOSINOPHILS PERCENT AUTO 2 % (0-6); Hematocrit 26.8 % (37.0-53.0); Hemoglobin 8.5 g/dL (13.5-17.5); IMMATURE GRAN ABSOLUTE AUTO 0.07 K/mm3 (0.00-0.10); IMMATURE GRAN PERCENT AUTO 1 % (0-1); LYMPHOCYTES ABSOLUTE AUTO 0.97 K/mm3 (0.84-5.20); LYMPHOCYTES PERCENT AUTO 19 % (21-46); MONOCYTES ABSOLUTE AUTO 0.71 K/mm3 (0.16-1.47); MONOCYTES PERCENT AUTO 14 % (4-13); Mean Corpuscular HGB 30.5 pg (26.0-34.0); Mean Corpuscular HGB Conc 31.7 g/dL (31.5-36.5); NEUTROPHILS PERCENT AUTO 64 % (41-73); Platelet Count 203 K/mm3 (150-400); RDW Coefficient Variation 17.3 % (11.7-14.2); RDW Standard Deviation 61.5 fL (35.1-46.3); Red Blood Cell Count 2.79 M/mm3 (4.30-5.90); White Blood Cell Count 5.19 K/mm3 (4.00-11.30)
[2018-08-17 05:08] LABS: Mean Corpuscular Volume 96 fL (80-100)
[2018-08-17 05:32] LABS: Albumin, Blood 3.2 g/dL (3.4-5.0); Albumin/Globulin Ratio 1.3 (0.8-1.8); Bilirubin, Total 0.7 mg/dL (0.1-1.0); Bun/Creatinine Ratio 15.1 (12.0-20.0); Calcium, Blood 7.8 mg/dL (8.5-10.1); Creatinine, Blood 1.72 mg/dL (0.60-1.20); Globulin, Blood 2.4 g/dL (2.2-4.0); Potassium, Blood 4.2 mmol/L (3.5-5.5); Total Protein, Blood 5.6 g/dL (6.4-8.2)
--- NOTE | 2018-08-17 07:25 | NUR ---
0630 PT REQUESTED AND RECIEVED PAIN MEDS, WILL EVAL FOR EFFECT AND PASS ON INFO TO ONCOMING NURSE. NO OTHER APPARENT SIGNS OF DISTRESS. CALL LIGHT IS IN REACH.
--- NOTE | 2018-08-17 09:49 | NUR ---
PEG TUBE CLEANED OF YELLOWISH DRAINAGE. NEW DRESSING. STS HE ONLY USES PEG TUBE "IF HE CAN'T EAT". RN REITERATES AND PATIENT WRITES "YES".
--- NOTE | 2018-08-17 10:38 | NUR ---
UPDATED ON HEMOGLOBIN 10.4 TO 8.5. NO NEW ORDERS STS DEHYDRATION.
--- NOTE | 2018-08-17 12:10 | NUR ---
NOTIFIED OF PATIENT C/O RT HIP/THIGH PAIN POST FALL AT HOME.
--- NOTE | 2018-08-17 14:57 | NUR ---
NOTIFIED PATIENT RECEIVED OXY 5 MG ABOUT 1 1/2 HOURS AGO AND NOW PAIN AT 10. AT HOME TAKES 5-10 Q 6 HOURS. OK TO CHANGE.
--- NOTE | 2018-08-17 15:35 | NUR ---
ALERT. ORIENTED. USES PEN/PAPER TO COMMUNICATE. PAIN MED DOSE CHANGED TO HOME MED DOSE. PATIENT CLEANS TRACH AREA OF FOAMY CLEAR SPUTUM. PEG TUBE CLEANED OF YELLOWISH DRAINAGE AND NEW DRESSING APPLIED. AWARE OF YELLOWISH DRAINAGE. GOOD APPETITE. TODAY PATIENT STS HE USES PEG TUBE ONLY IF HE CAN NOT EAT. STS HE DOES NOT TAKE MEDS THRU PEG TUBE. THIS RN CRUSHED MEDS IN A.M.& DISSOLVED THEM IN WARM WATER AND WHEN THIS RN TURNED TO GET A CHUX, PATIENT SWALLOWED MEDS THAT WERE ON TABLE. THIS IS WHEN PATIENT SAID HE DOES NOT USE PEG TUBE. AWARE. PATIENT TO XRAY. TELE ON. PER TECH SR. WILL CONTINUE TO MONITOR.
[2018-08-18 04:52] LABS: BASOPHILS ABSOLUTE AUTO 0.04 K/mm3 (0.00-0.23); BASOPHILS PERCENT AUTO 1 % (0-2); EOSINOPHILS ABSOLUTE AUTO 0.13 K/mm3 (0.00-0.68); EOSINOPHILS PERCENT AUTO 3 % (0-6); Hematocrit 29.4 % (37.0-53.0); Hemoglobin 9.6 g/dL (13.5-17.5); IMMATURE GRAN ABSOLUTE AUTO 0.05 K/mm3 (0.00-0.10); IMMATURE GRAN PERCENT AUTO 1 % (0-1); LYMPHOCYTES ABSOLUTE AUTO 0.77 K/mm3 (0.84-5.20); LYMPHOCYTES PERCENT AUTO 16 % (21-46); MONOCYTES ABSOLUTE AUTO 0.63 K/mm3 (0.16-1.47); MONOCYTES PERCENT AUTO 13 % (4-13); Mean Corpuscular HGB 31.3 pg (26.0-34.0); Mean Corpuscular HGB Conc 32.7 g/dL (31.5-36.5); Mean Corpuscular Volume 96 fL (80-100); Mean Platelet Volume 9.7 fL (9.1-12.4); NEUTROPHILS PERCENT AUTO 67 % (41-73); Platelet Count 204 K/mm3 (150-400); RDW Standard Deviation 60.4 fL (35.1-46.3); Red Blood Cell Count 3.07 M/mm3 (4.30-5.90); White Blood Cell Count 4.92 K/mm3 (4.00-11.30)
[2018-08-18 05:14] LABS: Alanine Aminotransfer (ALT/SGP 15 U/L (12-78); Albumin/Globulin Ratio 1.2 (0.8-1.8); Alk Phos 82 U/L (50-136); Anion Gap 5 mmol/L (6-16); Aspartate Aminotrans (AST/SGOT 15 U/L (12-37); Bilirubin, Total 0.6 mg/dL (0.1-1.0); Blood Urea Nitrogen 25 mg/dL (8-24); CO2, Blood 24 mmol/L (21-32); Calcium, Blood 7.9 mg/dL (8.5-10.1); Chloride, Blood 113 mmol/L (98-108); Creatinine, Blood 0.96 mg/dL (0.60-1.20); Globulin, Blood 2.5 g/dL (2.2-4.0); Glomerular Filtration Rate >60 (60-); Glucose, Blood 85 mg/dL (70-99); Potassium, Blood 4.5 mmol/L (3.5-5.5); Sodium, Blood 142 mmol/L (136-145); Total Protein, Blood 5.5 g/dL (6.4-8.2)
--- NOTE | 2018-08-18 06:17 | NUR ---
LYING IN SEMI FOWLERS WITH EYES CLOSED. AAO X3, SAAB FOLLOWS ALL COMMANDS. 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 STATES THAT HE USES A VOICE BOX AT HOME. MOUTHES WORDS OR USES PEN/PAPER TO COMMUNICATE. SELF SUCTIONS TRACHIAL STOMA OF FOAMY WHITE SPUTUM. PEG TUBE CARE AND DRESSING CHANGE COMPLETED. HAS STATED MULTIPLE TIMES THIS SHIFT THAT HIS RIGHT HIP IS BROKEN, AND THAT A DR. GAVE HIM THIS INFORMATION. HE IS UNABLE TO RECALL DR'S NAME AND BECOMES AGITATED WHEN ASKED. PT WAS CONSTANTLY MAMMOGRAPHER PÉREZ, WAS EVEN FOUND ASLEEP WHILE HOLDING CALL BUTTON DOWN. CONTINUED TO STATE THAT HE WAS IN THE WRONG HOSPITAL, AND THAT HIS CHART WAS WRONG. NURSING CONTINUED TO REITERATE THAT HE WAS IN THE CORRECT HOSPITAL AND HE WAS THE CORRECT PT FOR THE POC. WILL CONTINUE TO MONITOR.
[2018-08-18] MEDS ORDERED: Prosource30 ML PO (11:55)
[2018-08-18] MEDS ORDERED: Protonix40 M1 PO (11:57)
--- NOTE | 2018-08-18 15:55 | NUR ---
PT. [facility] [employer] PT'S MEDS FAXED TO [facility]. PT. EATING ORALLY NOT BY PEG TUBE. MEDS CRUSHED AND GIVEN IN APPLESAUSE. PT'S MEALS ARE PUREED. PT. REPORTED HE HAD A COAT MISSING AND $57.00 MISSING OUT OF HIS WALLETT. SAID HE HAD A VERY EXPENSIVE KERR SUEDE JACKET AND HIS WALLETT WAS IN THE POCKET. PT. HAD A BLUE JACKET HANGING IN CLOSET AND HIS WALLET WAS IN THE POCKET. PT. WORE HIS OTHER CLOTHES HOME, WHICH CONSISTED OF SHIRT JACKET SHOES AND SOCKS, WAS GIVEN PJ BOTTOMS THEY THREW HIS OTHER PANTS AWAY HE HAD DEFICATED AND VOIDED IN THEM. PT. ADVOCATE NOTED OF THE MISSING ITEMS AND THEY CAME SAW HIM BEFORE HE LEFT.
[2018-09-29] MEDS ORDERED: LEVSOD125 PO (08:32)
[2018-09-29] MEDS ORDERED: ALLO100 PO (08:32)
[2018-09-29] MEDS ORDERED: AMLO5 PO (08:32)
[2018-09-29] MEDS ORDERED: SERT100 PO (08:33)
[2018-09-29] MEDS ORDERED: VITAMIN D35000 UNIT PO (08:33)
[2018-09-29] MEDS ORDERED: CYAN500 PO (08:33)
[2018-09-29] MEDS ORDERED: Keppra1000 MG PO (08:34)
[2018-09-29] MEDS ORDERED: BACL10 PO (08:34)
[2018-09-29] MEDS ORDERED: DONE5 PO (08:34)
[2018-09-29] MEDS ORDERED: Pedi-Dri 100,0060 GM TOP (08:34)
[2018-09-29] MEDS ORDERED: Oxycodone HCl20 M1 PO (08:34)
[2018-09-29] MEDS ORDERED: Mirtazapine7.5 MG PO (08:35)
[2018-09-29] MEDS ORDERED: EPIPEN 2-P0.3 MG/0.3 IM (08:35)
[2018-09-29] MEDS ORDERED: MAGOXI400 PO (08:35)
[2018-09-29] MEDS ORDERED: TIZANIDINE HCL4 MG PO (08:35)
[2018-09-29] MEDS ORDERED: Vitamin B-650 MG PO (08:36)
[2018-09-29] MEDS ORDERED: GABA100 PO (08:36)
[2018-09-29] MEDS ORDERED: ONDA4 PO (08:36)
[2018-09-29] MEDS ORDERED: LOSA50 PO (08:36)
[2018-09-29] MEDS ORDERED: PANT40 PO (08:36)
[2018-09-29] MEDS ORDERED: Diclofenac Pota50 MG PO (08:37)
[2018-09-29] MEDS ORDERED: DOCU100 PO (08:37)
== END 2018-08-18 15:56 | disposition home or self-care (01) | DRG 682 ==
LOC: ER 11:33 → MEDS 14:42 → ENPENDDIS 08-18 11:13 → MEDS 08-18 15:56
PROVIDERS: Emergency Medicine; ADMIT Internal Medicine
DX: N17.9 Acute kidney failure, unspecified (principal); E43 Unspecified severe protein-calorie malnutrition; Z68.1 Body mass index [BMI] 19.9 or less, adult; T50.901A Poisoning by unspecified drugs, medicaments and biological substances, accidental (unintentional), initial encounter; E86.0 Dehydration; G40.909 Epilepsy, unspecified, not intractable, without status epilepticus; D64.9 Anemia, unspecified; M25.559 Pain in unspecified hip; I10 Essential (primary) hypertension; E03.9 Hypothyroidism, unspecified; M10.9 Gout, unspecified; Z93.0 Tracheostomy status; Z93.1 Gastrostomy status; Z85.21 Personal history of malignant neoplasm of larynx; Z87.891 Personal history of nicotine dependence; Z88.8 Allergy status to other drugs, medicaments and biological substances; Z88.6 Allergy status to analgesic agent; Z91.038 Other insect allergy status; Z79.899 Other long term (current) drug therapy
CPT/HCPCS: 36415; 73502; 80053; 81001; 82570; 82947; 84300; 85025; 87086; 93005; 93010; 96374; 97162; 97530; 99285-25; G0480; J1644; J2405; J7030

== ENCOUNTER 2018-08-31 00:20 | Inpatient (IN) | payer MEDICARE, OTHER ==
[~2018-08-31] VITALS: Ht 170.2 cm; Wt 45.4 kg
[~2018-08-31 00:20] MED LIST changes: +Prosource30 ML PO; +Protonix40 M1 PO
[2018-08-31 00:57] LABS: BASOPHILS ABSOLUTE AUTO 0.11 K/mm3 (0.00-0.23); BASOPHILS PERCENT AUTO 2 % (0-2); EOSINOPHILS ABSOLUTE AUTO 0.23 K/mm3 (0.00-0.68); EOSINOPHILS PERCENT AUTO 3 % (0-6); Hematocrit 28.5 % (37.0-53.0); Hemoglobin 9.2 g/dL (13.5-17.5); IMMATURE GRAN ABSOLUTE AUTO 0.06 K/mm3 (0.00-0.10); IMMATURE GRAN PERCENT AUTO 1 % (0-1); LYMPHOCYTES PERCENT AUTO 13 % (21-46); MONOCYTES ABSOLUTE AUTO 0.79 K/mm3 (0.16-1.47); MONOCYTES PERCENT AUTO 11 % (4-13); Mean Corpuscular HGB 29.9 pg (26.0-34.0); Mean Corpuscular HGB Conc 32.3 g/dL (31.5-36.5); Mean Corpuscular Volume 93 fL (80-100); Mean Platelet Volume 10.5 fL (9.1-12.4); NEUTROPHILS ABSOLUTE AUTO 5.29 K/mm3 (1.96-9.15); NEUTROPHILS PERCENT AUTO 71 % (41-73); Platelet Count 288 K/mm3 (150-400); RDW Coefficient Variation 15.7 % (11.7-14.2); RDW Standard Deviation 53.7 fL (35.1-46.3); Red Blood Cell Count 3.08 M/mm3 (4.30-5.90); White Blood Cell Count 7.48 K/mm3 (4.00-11.30)
[2018-08-31 01:15] LABS: Albumin, Blood 3.6 g/dL (3.4-5.0); Albumin/Globulin Ratio 1.3 (0.8-1.8); Bilirubin, Total 0.5 mg/dL (0.1-1.0); Bun/Creatinine Ratio 11.8 (12.0-20.0); Creatinine, Blood 2.29 mg/dL (0.60-1.20); Globulin, Blood 2.8 g/dL (2.2-4.0); Potassium, Blood 4.2 mmol/L (3.5-5.5); Total Protein, Blood 6.4 g/dL (6.4-8.2)
[2018-08-31 06:56] LABS: Source, Urine Clean Catch
[2018-08-31 06:59] LABS: Bilirubin, Urine Neg (Neg); Blood, Urine Neg (Neg); Glucose Qualitative, Urine Neg (Neg); Ketones, Urine Neg (Neg); Leukocyte Esterase, Urine Neg (Neg); Nitrite, Urine Neg (Neg); Protein, Urine Neg (Neg); Urobilinogen, Urine NORM (Normal); pH, Urine 6.5 (5.0-8.0)
[2018-08-31 07:02] LABS: Appearance, Urine Clear (Clear); Color, Urine Yellow (P-Yellow)
--- NOTE | 2018-08-31 08:34 | NUR ---
SHIFT SUMMARY PT A&O X4. PT ADMITTED FROM ER THIS AM. ORIENTED TO UNIT/CALL LIGHT. PT WHISPERS/MOVES LIPS AND WRITES TO COMMUNICATE;D/T ESTABLISHED TRACH. RED AREA TO COCCYX, BLANCHES, PT EDUCATED ON NEED TO REPOSITION EVER FEW HOURS TO PREVENT PRESSURE WOUNDS; PT NODDED UNDERSTANDING. RA; DENIES SOB AND CP. PAIN MANGED PER EMAR. PT REMOVED DRESSING AROUND PEG TUBE IN RLQ; CONSENT FOR PHOTO OBTAINED; PHOTO OF PEG SITE IN PT CHART; NEW DRAIN DRESSING APPLIED. SITE AROUND TUBE RED AND IRRIATED, CLEAR FLUID, LIGHT YELLOW FLUID, STONG FOUL/FERMENTED SMELL NOTED. DR. NELSON VIA PHONE, OKAY TO GIVE MEDS VIA PEG TUBE. DRESSING AROU CALL LIGHT IN REACH; PT DEMONSTRATES USE. SCD'S TO BLE'S. REPORT GIVEN TO DAY SHIFT RN. PT NPO. DR. CESAR NOTIFIED IN PERSON THIS AM PT REQUESTED TO BE DNR.
--- NOTE | 2018-08-31 09:54 | NUR ---
LUISA AND OXYCODONE VERIFIED WITH PT'S PHARMACY ([facility] IN [place]) PT REPORTED TAKING 20 MG OXYCODONE Q6 PRN. DISCUSSED WITH DR CESAR. SEE ORDERS. PT REPORTED PEG TUBE WAS USED IN ER LAST NIGHT. FLUSHED WITH SMALL AMT OF LIQ, DID NOT APPEAR TO LEAK AT THIS TIME.
--- NOTE | 2018-08-31 11:21 | NUR ---
PT DNR BAND PLACED EARLIER TODAY PER PT REQ/ORDER. VERIFIED WITH OTHER RN.
--- NOTE | 2018-08-31 13:27 | NUR ---
PT'S HOME MEDS CLARIFIED WITH [facility].
--- NOTE | 2018-08-31 18:50 | NUR ---
SHIFT SUMMARY PT A/O. PT BEEN ASSISTED WITH ADL'S PRN. PT REFUSED TO BE REPOSITIONED MULT TIMES TODAY, REPORTS REPOSITIONING SELF. PT BEEN MED FOR PAIN PRN. PT BEEN NPO. DR CAI REPORTED TO SEE PT EARLIER TODAY. DISCUSSED PT'S CONSULT WITH DR BARRIGA. DISCUSSED PT'S MEDS/STATUS WITH DR CESAR EARLIER TODAY WELL. PT REPORTED TO BE ASSISTED THIS EVENING TO BATHROOM WITH ASSIST FROM HEMATOLOGY ONCOLOGY CONSULTANT. PT USING CALL LIGHT APPR. WHEN RN UNABLE TO UNDERSTAND PT R/T TO TRACH PT WRITES ON PAPER.
--- NOTE | 2018-09-01 04:43 | NUR ---
SUMMARY NO ACUTE CHANGES NOTED FROM ASSESSMENT. PT REMAINS A&O X4. ON ROOM AIR, VSS, 1 PERSON ASSIST TO THE BATHROOM. PAIN MANAGED PER EMAR. PT REMAINS NPO PER ORDERS. WCTM, CALL LIGHT IN REACH
[2018-09-01 05:46] LABS: Hematocrit 35.1 % (37.0-53.0); Hemoglobin 11.6 g/dL (13.5-17.5); Mean Corpuscular HGB 30.4 pg (26.0-34.0); Mean Corpuscular Volume 92 fL (80-100); Mean Platelet Volume 9.6 fL (9.1-12.4); Platelet Count 256 K/mm3 (150-400); RDW Coefficient Variation 15.3 % (11.7-14.2); RDW Standard Deviation 51.5 fL (35.1-46.3); Red Blood Cell Count 3.81 M/mm3 (4.30-5.90); White Blood Cell Count 7.26 K/mm3 (4.00-11.30)
[2018-09-01 05:52] LABS: BASOPHILS ABSOLUTE AUTO 0.09 K/mm3 (0.00-0.23); BASOPHILS PERCENT AUTO 1 % (0-2); EOSINOPHILS ABSOLUTE AUTO 0.13 K/mm3 (0.00-0.68); EOSINOPHILS PERCENT AUTO 2 % (0-6); Hematocrit 34.6 % (37.0-53.0); Hemoglobin 11.6 g/dL (13.5-17.5); IMMATURE GRAN ABSOLUTE AUTO 0.05 K/mm3 (0.00-0.10); IMMATURE GRAN PERCENT AUTO 1 % (0-1); LYMPHOCYTES ABSOLUTE AUTO 0.65 K/mm3 (0.84-5.20); LYMPHOCYTES PERCENT AUTO 9 % (21-46); MONOCYTES ABSOLUTE AUTO 0.75 K/mm3 (0.16-1.47); MONOCYTES PERCENT AUTO 10 % (4-13); Mean Corpuscular HGB 30.9 pg (26.0-34.0); Mean Corpuscular HGB Conc 33.5 g/dL (31.5-36.5); Mean Corpuscular Volume 92 fL (80-100); NEUTROPHILS ABSOLUTE AUTO 5.83 K/mm3 (1.96-9.15); NEUTROPHILS PERCENT AUTO 78 % (41-73); Platelet Count 267 K/mm3 (150-400); RDW Coefficient Variation 15.3 % (11.7-14.2); RDW Standard Deviation 51.8 fL (35.1-46.3); Red Blood Cell Count 3.76 M/mm3 (4.30-5.90)
[2018-09-01 06:13] LABS: Alanine Aminotransfer (ALT/SGP 12 U/L (12-78); Albumin, Blood 3.9 g/dL (3.4-5.0); Albumin/Globulin Ratio 1.3 (0.8-1.8); Alk Phos 204 U/L (50-136); Anion Gap 10 mmol/L (6-16); Aspartate Aminotrans (AST/SGOT 19 U/L (12-37); Bilirubin, Total 0.8 mg/dL (0.1-1.0); Blood Urea Nitrogen 14 mg/dL (8-24); Bun/Creatinine Ratio 11.3 (12.0-20.0); CO2, Blood 20 mmol/L (21-32); Calcium, Blood 8.2 mg/dL (8.5-10.1); Chloride, Blood 110 mmol/L (98-108); Creatinine, Blood 1.24 mg/dL (0.60-1.20); Globulin, Blood 2.9 g/dL (2.2-4.0); Glomerular Filtration Rate >60 (60-); Glucose, Blood 77 mg/dL (70-99); Potassium, Blood 4.2 mmol/L (3.5-5.5); Sodium, Blood 140 mmol/L (136-145); Total Protein, Blood 6.8 g/dL (6.4-8.2)
[2018-09-01 06:17] LABS: Anion Gap 9 mmol/L (6-16); Blood Urea Nitrogen 14 mg/dL (8-24); Bun/Creatinine Ratio 11.6 (12.0-20.0); CO2, Blood 20 mmol/L (21-32); Calcium, Blood 8.3 mg/dL (8.5-10.1); Chloride, Blood 110 mmol/L (98-108); Creatinine, Blood 1.21 mg/dL (0.60-1.20); Glomerular Filtration Rate >60 (60-); Glucose, Blood 79 mg/dL (70-99); Potassium, Blood 4.2 mmol/L (3.5-5.5); Sodium, Blood 139 mmol/L (136-145)
--- NOTE | 2018-09-01 07:05 | NUR ---
recvd report from previous shift JOHANN Murphy, pt awake in bed, a/0 x 4, pleasant/cooperative, pt communicates with note pad and mouthing words r/t trachiotomy. call light within reach, bed rails up x2, bed in lowest position. rn student will assist with pt care, recvd permission from pt. pt up bathroom with fww and standby assist.
--- NOTE | 2018-09-01 13:25 | NUR ---
pt provided with discharge instructions, peripheral IV removed WNL, pt states understanding of instructions. this RN called pt's primary care provider to schedule follow up appt. PT notified of time, uses pad to communicate that he has someone to assist him with telephone scheduling. translink set up to pickle solution maker pt at 1400. pt will be transferred via wheelchair to wheelchair van by SUSTAINABLE AGRICULTURE SPECIALIST with belongings.
[2018-09-29] MEDS ORDERED: AMLO5 PO (08:32)
[2018-09-29] MEDS ORDERED: ALLO100 PO (08:32)
[2018-09-29] MEDS ORDERED: LEVSOD125 PO (08:32)
[2018-09-29] MEDS ORDERED: CYAN500 PO (08:33)
[2018-09-29] MEDS ORDERED: VITAMIN D35000 UNIT PO (08:33)
[2018-09-29] MEDS ORDERED: SERT100 PO (08:33)
[2018-09-29] MEDS ORDERED: Keppra1000 MG PO (08:34)
[2018-09-29] MEDS ORDERED: Oxycodone HCl20 M1 PO (08:34)
[2018-09-29] MEDS ORDERED: DONE5 PO (08:34)
[2018-09-29] MEDS ORDERED: Pedi-Dri 100,0060 GM TOP (08:34)
[2018-09-29] MEDS ORDERED: BACL10 PO (08:34)
[2018-09-29] MEDS ORDERED: MAGOXI400 PO (08:35)
[2018-09-29] MEDS ORDERED: TIZANIDINE HCL4 MG PO (08:35)
[2018-09-29] MEDS ORDERED: EPIPEN 2-P0.3 MG/0.3 IM (08:35)
[2018-09-29] MEDS ORDERED: Mirtazapine7.5 MG PO (08:35)
[2018-09-29] MEDS ORDERED: LOSA50 PO (08:36)
[2018-09-29] MEDS ORDERED: PANT40 PO (08:36)
[2018-09-29] MEDS ORDERED: ONDA4 PO (08:36)
[2018-09-29] MEDS ORDERED: Vitamin B-650 MG PO (08:36)
[2018-09-29] MEDS ORDERED: GABA100 PO (08:36)
[2018-09-29] MEDS ORDERED: DOCU100 PO (08:37)
[2018-09-29] MEDS ORDERED: Diclofenac Pota50 MG PO (08:37)
== END 2018-09-01 17:09 | disposition home or self-care (01) | DRG 683 ==
LOC: ER 00:20 → SURS 00:21
PROVIDERS: Emergency Medicine; Family Medicine; ADMIT Internal Medicine
DX: N17.9 Acute kidney failure, unspecified (principal); S32.82XA Multiple fractures of pelvis without disruption of pelvic ring, initial encounter for closed fracture; E44.0 Moderate protein-calorie malnutrition; K94.23 Gastrostomy malfunction; E86.0 Dehydration; G40.909 Epilepsy, unspecified, not intractable, without status epilepticus; R19.7 Diarrhea, unspecified; E03.9 Hypothyroidism, unspecified; M10.30 Gout due to renal impairment, unspecified site; R29.6 Repeated falls; X58.XXXA Exposure to other specified factors, initial encounter; Z91.81 History of falling; Z90.02 Acquired absence of larynx; Z85.21 Personal history of malignant neoplasm of larynx; Z53.29 Procedure and treatment not carried out because of patient's decision for other reasons
CPT/HCPCS: 36415; 74176; 80048; 80053; 81003; 83605; 83690; 85025; 85027; 87040; 94760; 99285-25; J0360; J2405; J3010; J7030

== ENCOUNTER 2018-09-15 11:49 | Emergency (ER) | payer MEDICARE, OTHER ==
[~2018-09-15] VITALS: Wt 59.0 kg
[2018-09-29] MEDS ORDERED: ALLO100 PO (08:32)
[2018-09-29] MEDS ORDERED: AMLO5 PO (08:32)
[2018-09-29] MEDS ORDERED: LEVSOD125 PO (08:32)
[2018-09-29] MEDS ORDERED: CYAN500 PO (08:33)
[2018-09-29] MEDS ORDERED: SERT100 PO (08:33)
[2018-09-29] MEDS ORDERED: VITAMIN D35000 UNIT PO (08:33)
[2018-09-29] MEDS ORDERED: Oxycodone HCl20 M1 PO (08:34)
[2018-09-29] MEDS ORDERED: DONE5 PO (08:34)
[2018-09-29] MEDS ORDERED: Keppra1000 MG PO (08:34)
[2018-09-29] MEDS ORDERED: BACL10 PO (08:34)
[2018-09-29] MEDS ORDERED: Pedi-Dri 100,0060 GM TOP (08:34)
[2018-09-29] MEDS ORDERED: Mirtazapine7.5 MG PO (08:35)
[2018-09-29] MEDS ORDERED: TIZANIDINE HCL4 MG PO (08:35)
[2018-09-29] MEDS ORDERED: MAGOXI400 PO (08:35)
[2018-09-29] MEDS ORDERED: EPIPEN 2-P0.3 MG/0.3 IM (08:35)
[2018-09-29] MEDS ORDERED: GABA100 PO (08:36)
[2018-09-29] MEDS ORDERED: ONDA4 PO (08:36)
[2018-09-29] MEDS ORDERED: Vitamin B-650 MG PO (08:36)
[2018-09-29] MEDS ORDERED: PANT40 PO (08:36)
[2018-09-29] MEDS ORDERED: LOSA50 PO (08:36)
[2018-09-29] MEDS ORDERED: DOCU100 PO (08:37)
[2018-09-29] MEDS ORDERED: Diclofenac Pota50 MG PO (08:37)
== END 2018-09-15 13:37 | disposition home or self-care (01) ==
LOC: ER 11:49
DX: R40.20 Unspecified coma (principal); Z88.8 Allergy status to other drugs, medicaments and biological substances; Z91.030 Bee allergy status; Z91.018 Allergy to other foods; Z79.899 Other long term (current) drug therapy
CPT/HCPCS: 99283

== ENCOUNTER 2018-09-16 03:46 | Emergency (ER) | payer MEDICARE, OTHER ==
[~2018-09-16] VITALS: Ht 170.2 cm; Wt 49.9 kg
[2018-09-16 04:35] LABS: Calcium, Ionized (POC) 1.24 mmol/L (1.10-1.46); Chloride (POC) 105 mmol/L (98-108); Creatinine (POC) 1.7 mg/dL (0.8-1.3); Glucose (ISTAT POC) 106 mg/dL (70-99); Hemoglobin (POC) 9.9 g/dL (13.5-17.5); Potassium (POC) 4.1 mmol/L (3.5-5.5); Sodium (POC) 141 mmol/L (135-148); Total CO2 (POC) 22 mmol/L (21-32)
[2018-09-16 04:42] LABS: BASOPHILS ABSOLUTE AUTO 0.04 K/mm3 (0.00-0.23); BASOPHILS PERCENT AUTO 0 % (0-2); EOSINOPHILS ABSOLUTE AUTO 0.14 K/mm3 (0.00-0.68); EOSINOPHILS PERCENT AUTO 1 % (0-6); Hematocrit 28.7 % (37.0-53.0); Hemoglobin 9.5 g/dL (13.5-17.5); IMMATURE GRAN ABSOLUTE AUTO 0.13 K/mm3 (0.00-0.10); IMMATURE GRAN PERCENT AUTO 1 % (0-1); LYMPHOCYTES ABSOLUTE AUTO 0.41 K/mm3 (0.84-5.20); LYMPHOCYTES PERCENT AUTO 4 % (21-46); MONOCYTES ABSOLUTE AUTO 1.15 K/mm3 (0.16-1.47); MONOCYTES PERCENT AUTO 11 % (4-13); Mean Corpuscular HGB 31.1 pg (26.0-34.0); Mean Corpuscular HGB Conc 33.1 g/dL (31.5-36.5); Mean Corpuscular Volume 94 fL (80-100); Mean Platelet Volume 10.2 fL (9.1-12.4); NEUTROPHILS ABSOLUTE AUTO 9.07 K/mm3 (1.96-9.15); NEUTROPHILS PERCENT AUTO 83 % (41-73); Platelet Count 227 K/mm3 (150-400); RDW Coefficient Variation 14.8 % (11.7-14.2); RDW Standard Deviation 51.5 fL (35.1-46.3); Red Blood Cell Count 3.05 M/mm3 (4.30-5.90); White Blood Cell Count 10.94 K/mm3 (4.00-11.30)
[2018-09-16 05:02] LABS: Alanine Aminotransfer (ALT/SGP 26 U/L (12-78); Albumin, Blood 4.1 g/dL (3.4-5.0); Albumin/Globulin Ratio 1.4 (0.8-1.8); Alk Phos 142 U/L (50-136); Anion Gap 8 mmol/L (6-16); Aspartate Aminotrans (AST/SGOT 35 U/L (12-37); Bilirubin, Total 1.1 mg/dL (0.1-1.0); Blood Urea Nitrogen 28 mg/dL (8-24); Bun/Creatinine Ratio 16.7 (12.0-20.0); CO2, Blood 24 mmol/L (21-32); Calcium, Blood 8.7 mg/dL (8.5-10.1); Chloride, Blood 110 mmol/L (98-108); Creatinine, Blood 1.68 mg/dL (0.60-1.20); Globulin, Blood 2.9 g/dL (2.2-4.0); Glomerular Filtration Rate 43 (60-); Glucose, Blood 100 mg/dL (70-99); Potassium, Blood 4.2 mmol/L (3.5-5.5); Sodium, Blood 142 mmol/L (136-145); Troponin I <0.015 ng/mL (0.000-0.040)
[2018-09-29] MEDS ORDERED: LEVSOD125 PO (08:32)
[2018-09-29] MEDS ORDERED: AMLO5 PO (08:32)
[2018-09-29] MEDS ORDERED: ALLO100 PO (08:32)
[2018-09-29] MEDS ORDERED: VITAMIN D35000 UNIT PO (08:33)
[2018-09-29] MEDS ORDERED: SERT100 PO (08:33)
[2018-09-29] MEDS ORDERED: CYAN500 PO (08:33)
[2018-09-29] MEDS ORDERED: Keppra1000 MG PO (08:34)
[2018-09-29] MEDS ORDERED: Pedi-Dri 100,0060 GM TOP (08:34)
[2018-09-29] MEDS ORDERED: BACL10 PO (08:34)
[2018-09-29] MEDS ORDERED: Oxycodone HCl20 M1 PO (08:34)
[2018-09-29] MEDS ORDERED: DONE5 PO (08:34)
[2018-09-29] MEDS ORDERED: MAGOXI400 PO (08:35)
[2018-09-29] MEDS ORDERED: Mirtazapine7.5 MG PO (08:35)
[2018-09-29] MEDS ORDERED: TIZANIDINE HCL4 MG PO (08:35)
[2018-09-29] MEDS ORDERED: EPIPEN 2-P0.3 MG/0.3 IM (08:35)
[2018-09-29] MEDS ORDERED: Vitamin B-650 MG PO (08:36)
[2018-09-29] MEDS ORDERED: PANT40 PO (08:36)
[2018-09-29] MEDS ORDERED: LOSA50 PO (08:36)
[2018-09-29] MEDS ORDERED: GABA100 PO (08:36)
[2018-09-29] MEDS ORDERED: ONDA4 PO (08:36)
[2018-09-29] MEDS ORDERED: DOCU100 PO (08:37)
[2018-09-29] MEDS ORDERED: Diclofenac Pota50 MG PO (08:37)
== END 2018-09-16 11:36 | disposition home or self-care (01) ==
LOC: ER 03:46
PROVIDERS: Emergency Medicine
DX: R56.9 Unspecified convulsions (principal); Z88.8 Allergy status to other drugs, medicaments and biological substances; Z88.6 Allergy status to analgesic agent; Z91.038 Other insect allergy status; Z79.899 Other long term (current) drug therapy; Z87.891 Personal history of nicotine dependence
CPT/HCPCS: 36415; 70450; 73030; 73100; 73502; 73562-RT; 73610; 80047; 80053; 84484; 85014; 85025; 93005; 93010; 99285-25

== ENCOUNTER 2018-09-18 08:17 | Emergency (ER) | payer MEDICARE, OTHER ==
[~2018-09-18] VITALS: Ht 162.6 cm; Wt 59.0 kg
[2018-09-29] MEDS ORDERED: LEVSOD125 PO (08:32)
[2018-09-29] MEDS ORDERED: AMLO5 PO (08:32)
[2018-09-29] MEDS ORDERED: ALLO100 PO (08:32)
[2018-09-29] MEDS ORDERED: SERT100 PO (08:33)
[2018-09-29] MEDS ORDERED: CYAN500 PO (08:33)
[2018-09-29] MEDS ORDERED: VITAMIN D35000 UNIT PO (08:33)
[2018-09-29] MEDS ORDERED: Keppra1000 MG PO (08:34)
[2018-09-29] MEDS ORDERED: BACL10 PO (08:34)
[2018-09-29] MEDS ORDERED: DONE5 PO (08:34)
[2018-09-29] MEDS ORDERED: Oxycodone HCl20 M1 PO (08:34)
[2018-09-29] MEDS ORDERED: Pedi-Dri 100,0060 GM TOP (08:34)
[2018-09-29] MEDS ORDERED: Mirtazapine7.5 MG PO (08:35)
[2018-09-29] MEDS ORDERED: EPIPEN 2-P0.3 MG/0.3 IM (08:35)
[2018-09-29] MEDS ORDERED: MAGOXI400 PO (08:35)
[2018-09-29] MEDS ORDERED: TIZANIDINE HCL4 MG PO (08:35)
[2018-09-29] MEDS ORDERED: LOSA50 PO (08:36)
[2018-09-29] MEDS ORDERED: GABA100 PO (08:36)
[2018-09-29] MEDS ORDERED: ONDA4 PO (08:36)
[2018-09-29] MEDS ORDERED: PANT40 PO (08:36)
[2018-09-29] MEDS ORDERED: Vitamin B-650 MG PO (08:36)
[2018-09-29] MEDS ORDERED: DOCU100 PO (08:37)
[2018-09-29] MEDS ORDERED: Diclofenac Pota50 MG PO (08:37)
== END 2018-09-18 11:45 | disposition home or self-care (01) ==
LOC: ER 08:17
DX: Z43.1 Encounter for attention to gastrostomy (principal); Z87.891 Personal history of nicotine dependence; Z88.8 Allergy status to other drugs, medicaments and biological substances; Z91.030 Bee allergy status; Z91.018 Allergy to other foods; Z79.899 Other long term (current) drug therapy; Z79.891 Long term (current) use of opiate analgesic
CPT/HCPCS: 49465; 99283-25; Q9963

== ENCOUNTER 2018-10-22 10:19 | Emergency (ER) | payer MEDICARE, OTHER ==
[~2018-10-22] VITALS: Ht 157.5 cm; Wt 56.7 kg
[~2018-10-22 10:19] MED LIST changes: +CYAN500 PO; +Keppra1000 MG PO; +Mirtazapine7.5 MG PO; +ONDA4 PO; +Pedi-Dri 100,0060 GM TOP; +VITAMIN D35000 UNIT PO; +Vitamin B-650 MG PO
== END 2018-10-22 12:30 | disposition home or self-care (01) ==
LOC: ER 10:19
DX: K94.23 Gastrostomy malfunction (principal); L97.419 Non-pressure chronic ulcer of right heel and midfoot with unspecified severity; Z88.8 Allergy status to other drugs, medicaments and biological substances; Z91.030 Bee allergy status; Z88.5 Allergy status to narcotic agent; Z88.6 Allergy status to analgesic agent; Z79.899 Other long term (current) drug therapy
CPT/HCPCS: 43762; 74018; 99283-25

== ENCOUNTER 2018-11-14 19:32 | Observation (INO) | payer MEDICARE, OTHER ==
[~2018-11-14] VITALS: Ht 167.6 cm; Wt 45.4 kg
[2018-11-14 19:45] LABS: Calcium, Ionized (POC) 1.15 mmol/L (1.10-1.46); Creatinine (POC) 1.3 mg/dL (0.8-1.3); Hemoglobin (POC) 11.6 g/dL (13.5-17.5); Potassium (POC) 3.9 mmol/L (3.5-5.5)
[2018-11-14 19:56] LABS: BASOPHILS ABSOLUTE AUTO 0.05 K/mm3 (0.00-0.23); BASOPHILS PERCENT AUTO 1 % (0-2); EOSINOPHILS ABSOLUTE AUTO 0.02 K/mm3 (0.00-0.68); EOSINOPHILS PERCENT AUTO 0 % (0-6); Hematocrit 36.6 % (37.0-53.0); Hemoglobin 11.7 g/dL (13.5-17.5); IMMATURE GRAN ABSOLUTE AUTO 0.02 K/mm3 (0.00-0.10); IMMATURE GRAN PERCENT AUTO 0 % (0-1); LYMPHOCYTES PERCENT AUTO 13 % (21-46); MONOCYTES ABSOLUTE AUTO 0.56 K/mm3 (0.16-1.47); MONOCYTES PERCENT AUTO 9 % (4-13); Mean Corpuscular HGB 31.5 pg (26.0-34.0); Mean Corpuscular Volume 99 fL (80-100); Mean Platelet Volume 10.3 fL (9.1-12.4); NEUTROPHILS ABSOLUTE AUTO 4.51 K/mm3 (1.96-9.15); NEUTROPHILS PERCENT AUTO 76 % (41-73); Platelet Count 269 K/mm3 (150-400); Red Blood Cell Count 3.71 M/mm3 (4.30-5.90); White Blood Cell Count 5.96 K/mm3 (4.00-11.30)
[2018-11-14 20:17] LABS: Alanine Aminotransfer (ALT/SGP 27 U/L (12-78); Albumin, Blood 3.8 g/dL (3.4-5.0); Albumin/Globulin Ratio 1.3 (0.8-1.8); Alk Phos 160 U/L (50-136); Anion Gap 7 mmol/L (6-16); Aspartate Aminotrans (AST/SGOT 37 U/L (12-37); Blood Urea Nitrogen 20 mg/dL (8-24); Bun/Creatinine Ratio 17.1 (12.0-20.0); CO2, Blood 28 mmol/L (21-32); Calcium, Blood 9.3 mg/dL (8.5-10.1); Chloride, Blood 107 mmol/L (98-108); Creatinine, Blood 1.17 mg/dL (0.60-1.20); Glomerular Filtration Rate >60 (60-); Glucose, Blood 92 mg/dL (70-99); Potassium, Blood 3.9 mmol/L (3.5-5.5); Sodium, Blood 142 mmol/L (136-145); Total Protein, Blood 6.8 g/dL (6.4-8.2)
[2018-11-14] MEDS ORDERED: HYDR10 PO (20:48)
[2018-11-14] MEDS ORDERED: LORA.5 PO (20:50)
[2018-11-14 20:55] LABS: Influenza A Negative (NEGATIVE); Influenza B Negative (NEGATIVE)
[2018-11-14 21:20] LABS: Source, Urine Catheter
[2018-11-14 21:27] LABS: Appearance, Urine Clear (Clear); Blood, Urine Neg (Neg); Color, Urine Yellow (P-Yellow); Glucose Qualitative, Urine Neg (Neg); Ketones, Urine 3+ (Neg); Leukocyte Esterase, Urine 1+ (Neg); Nitrite, Urine Neg (Neg); Protein, Urine 2+ (Neg); Urobilinogen, Urine 2+ (Normal)
[2018-11-14 21:32] LABS: Bilirubin, Urine 1+ (Neg)
[2018-11-14 21:40] LABS: White Blood Cells, Urine 0-2 /hpf (0-5)
[2018-11-14 21:41] LABS: Amorphous Light (0-Heavy); Bacteria Rare /hpf; Mucus Light (0-Heavy); Red Blood Cells, Urine Not Seen /hpf (0-2); Squamous Epithelial Cells Rare /hpf (Few)
== END 2018-11-15 03:40 | disposition home or self-care (01) ==
LOC: ER 19:32 → ERHOLD 19:33
PROVIDERS: Emergency Medicine; ADMIT Internal Medicine
DX: R40.20 Unspecified coma (principal); E86.0 Dehydration; I10 Essential (primary) hypertension; E03.9 Hypothyroidism, unspecified; M10.9 Gout, unspecified; R56.9 Unspecified convulsions; F32.9 Major depressive disorder, single episode, unspecified; Z79.899 Other long term (current) drug therapy; Z88.8 Allergy status to other drugs, medicaments and biological substances; Z88.6 Allergy status to analgesic agent; Z91.030 Bee allergy status; Z85.21 Personal history of malignant neoplasm of larynx; Z87.19 Personal history of other diseases of the digestive system
CPT/HCPCS: 51702; 70450; 71046; 80047; 80053; 81001; 82140; 85014; 85025; 87086; 87804; 93005; 93010; 96365-59; 96366-59; 96376-59; 99285-25; J1953; J2310